=== PATIENT | male | born 1930 | race Caucasian/White ===

== ENCOUNTER 2017-12-03 20:32 | Inpatient (IN) | payer MEDICARE ==
[2017-12-03] MEDS ORDERED: solu-MEDROL 125 MG IV ONE (22:21)
[2017-12-03] MEDS ORDERED: PROVENTIL 2.5 MG/3 ML NEB IH ONE (22:21)
[2017-12-03] MEDS ORDERED: Levofloxacin 500MG/100ML D5W 500 MG/100 ML BAG IV STA ×2 (22:24→23:47)
--- NOTE | 2017-12-03 22:26 | ERPHSYRPT ---
- History of Present Illness Time Seen by Provider: 12/03/17 22:00 Source: patient Exam Limitations: clinical condition Patient Subjective Stated Complaint: SOB Triage Nursing Assessment: Pt presents to the ED with complaints of SOB x2 weeks , worse x2 days. Pt states onset 2 weeks ago with diagnosis of bronchitis, recieved IM injections and D/C. Pt states worse yesterday but improvement with duoneb treatments. Pt states worse SOB with movement, denies pain at this time. Physician History: PATIENT WITH A HISTORY OF CORONARY ARTERY DISEASE, X 3 STENT INSERTION, COPD, COMPLAINS OF INCREASING DYSPNEA X 2 WEEKS, PRODUCTIVE X 3-4 DAYS AND EXERTION DYSPNEA, UNSURE OF FEVER. DENIES CHEST PAIN , PALPITATIONS. Timing/Duration: week(s) Activities at Onset: activity Severity of Dyspnea-Max: moderate Severity of Dyspnea-Current: moderate Possible Cause: occasional episodes Modifying Factors: Improves With: albuterol nebulizer, coughing Associated Symptoms: constant, cough Allergies/Adverse Reactions: erythromycin base Allergy (Severe, Verified 06/09/16 13:34) Tightness in Chest lisinopril Allergy (Severe, Verified 06/09/16 13:34) Swelling of Tongue and Lips losartan potassium [From Cozaar] Allergy (Severe, Verified 06/09/16 13:34) Swelling of Face Penicillins Allergy (Severe, Verified 06/09/16 13:34) Hives Home Medications: Aspirin [Aspirin EC] 81 mg PO DAILY 05/25/15 [History] Carvedilol 3.125 mg [Coreg 3.125 MG] 3.125 mg PO BID 05/25/15 [History] Clopidogrel Bisulfate 75 mg [PLAVIX 75 MG Tablet] 75 mg PO DAILY 05/25/15 [History] Isosorbide Mononitrate 30 mg [Imdur 30 MG] 30 mg PO DAILY 05/25/15 [History ] Potassium Chloride 10 Meq Tab* [Klor Con 10 MEQ] 20 meq PO BID 05/25/15 [ History] Pravastatin Sodium [Pravachol] 40 mg PO HS 05/25/15 [History] Polyethylene Glycol 3350 17 gm [Miralax Powder 17GM PACKET] 17 gm PO DAILY [History] Albuterol 2.5 mg/3 ml Neb [Proventil 2.5 mg/3 ml Neb] 2.5 mg IH Q4H PRN [History] Antiox.mv No.10/Omeg3s/Lut/Johnny [I-Caps with Lutein-[place] 3 Sfg] 1 each PO BID [History] Carboxymethylcellulose Sodium [Thera Tears] 1 ml OP QID 05/15/16 [History] Indomethacin 25 mg [Indocin 25 MG] 50 mg PO DAILY 05/15/16 [History] Meclizine HCl 25 mg [Antivert 25 mg] 25 mg PO TID 12/04/17 [History] Mometasone/Formoterol [Dulera 200 Mcg/5 Mcg Inhaler] 2 puff IH BID 12/04/17 [ History] Hx Tetanus, Diphtheria Vaccination/Date Given: Yes Hx Influenza Vaccination/Date Given: Yes Hx Pneumococcal Vaccination/Date Given: Yes Immunizations Up to Date: Yes - Review of Systems Constitutional: No Fever, No Chills Eyes: No Symptoms Ears, Nose, & Throat: No Symptoms Respiratory: Cough, Dyspnea Cardiac: No Chest Pain, No Edema, No Syncope Abdominal/Gastrointestinal: Constipation, No Abdominal Pain, No Nausea, No Vomiting, No Diarrhea Genitourinary Symptoms: No Symptoms, No Dysuria Musculoskeletal: No Symptoms, No Back Pain, No Neck Pain Skin: No Rash Neurological: No Dizziness, No Focal Weakness, No Sensory Changes Psychological: No Symptoms Endocrine: No Symptoms All Other Systems: Reviewed and Negative - Past Medical History Pertinent Past Medical History: Yes Neurological History: No Pertinent History ENT History: Cataracts Cardiac History: Congestive Heart Failure, High Cholesterol Respiratory History: Asthma, CHF, COPD, Emphysema Endocrine Medical History: No Pertinent History Musculoskeletal History: Arthritis, Osteoarthritis GI Medical History: Hemorrhoids, Hernia History: No Pertinent History Psycho-Social History: No Pertinent History Male Reproductive Disorders: No Pertinent History Other Medical History: gout - Past Surgical History Past Surgical History: Yes Neuro Surgical History: No Pertinent History Cardiac: Angioplasty, CABG, Cardiac Stent Respiratory: No Pertinent History Gastrointestinal: Hemorrhoidectomy, Hernia Repair Genitourinary: No Pertinent History Musculoskeletal: No Pertinent History Male Surgical History: No Pertinent History - Social History Smoking Status: Former smoker How long have you smoked: 25 Exposure to second hand smoke: No Alcohol Use: None Drug Use: none Patient Lives Alone: No Significant Family History: heart disease, hypertension - Nursing Vital Signs Nursing Vital Signs: Initial Vital Signs Temperature 98.8 F 12/03/17 21:51 Pulse Rate 83 12/03/17 21:51 Respiratory Rate 15 12/03/17 21:51 Blood Pressure 156/71 12/03/17 21:51 O2 Sat by Pulse Oximetry 95 12/03/17 21:51 Pain Scale Pain Intensity 0 - Physical Exam General Appearance: mild distress Eye Exam: PERRL/EOMI Neck Exam: normal inspection, supple Respiratory Exam: diminished breath sounds, wheezing Cardiovascular/Chest Exam: normal heart sounds, regular rate/rhythm Abdominal/Gastrointestinal Exam: soft, No tenderness, No distention, No mass Extremity Exam: non-tender, normal range of motion, normal inspection, no calf tenderness, no pedal edema Peripheral Pulses Exam: carotid (R): 2+, carotid (L): 2+, femoral (R): 2+, femoral (L): 2+, dorsalis-pedis (R): 2+, dorsalis-pedis (L): 2+ Neurologic Exam: alert, oriented x 3, cooperative, underwriting analyst II-XII nml as tested, sensation nml, No motor deficits Skin Exam: normal color, warm, No dry SpO2 Interpretation: normal SpO2: 95 Oxygen Delivery: Room Air - Radiology Exams Chest X-ray Interpretation: Interpreted by me (LEFT INFRAHILAR INFILTRATE, RIGHT BASILAR INFILTRATE, COPD) Ordered Tests: Active Orders 24 hr Category Date Time Status Up With Assistance ROUTINE Activity 12/04/17 01:10 Ordered Admission/Status Order ROUTINE Care 12/04/17 01:10 Ordered Insurance Operations Rep STAT Care 12/03/17 22:22 Active Code Status Order ROUTINE Care 12/04/17 01:10 Ordered EKG-ER Only STAT Care 12/03/17 22:59 Active IV Care Q6H Care 12/04/17 01:10 Ordered Oxygen-ED Only NASAL CANNULA 2 lpm Care 12/03/17 22:21 Active Ap Hose, Apply ROUTINE Care 12/04/17 01:10 Ordered Telemetry ROUTINE Care 12/04/17 01:10 Ordered Vital Signs Q4H Care 12/04/17 01:10 Ordered Weight,Daily 0600 Care 12/04/17 01:10 Ordered CHEST 1 VIEW (PORTABLE) Stat Exams 12/03/17 22:22 Taken BLOOD CULTURE Stat Lab 12/03/17 23:20 Ordered CBC W DIFF Stat Lab 12/03/17 22:30 Completed CMP Stat Lab 12/03/17 22:30 Completed MAGNESIUM Stat Lab 12/03/17 22:30 Completed NT PRO BNP Stat Lab 12/03/17 22:30 Completed TROPONIN Q3H Lab 12/03/17 22:30 Completed TROPONIN Q3H Lab 12/04/17 01:30 Ordered TROPONIN Q3H Lab 12/04/17 04:30 Ordered TROPONIN Q3H Lab 12/04/17 07:30 Ordered TROPONIN Q3H Lab 12/04/17 10:30 Ordered Oxygen NASAL CANNULA 2 lpm RT 12/04/17 01:10 Ordered Pulse Oximetry ROUTINE RT 12/04/17 01:10 Ordered Respiratory Nebulizer Q4H RT 12/04/17 01:10 Ordered Respiratory Nebulizer STAT RT 12/03/17 22:23 Completed Respiratory Nebulizer STAT RT 12/04/17 00:48 Completed Respiratory Therapy Consult ROUTINE RT 12/04/17 01:10 Ordered Transfer Order Routine Transfer 12/04/17 Ordered Medication Summary Generic Name Dose Route Start Last Admin Trade Name Freq PRN Reason Stop Dose Admin Sodium Chloride 1,000 mls @ 50 mls/hr 12/03/17 22:30 12/03/17 22:37 Sodium Chloride 0.9% 1000 Ml IV 01/02/18 22:29 50 mls/hr .Q20H LORENZO Administration Discontinued Medications Generic Name Dose Route Start Last Admin Trade Name Freq PRN Reason Stop Dose Admin Albuterol Sulfate 10 mg 12/03/17 22:21 12/03/17 22:31 Proventil 2.5 Mg/3 Ml Neb IH 12/03/17 22:22 10 mg STAT ONE Administration Albuterol Sulfate Confirm 12/03/17 22:28 Proventil Solution 2.5 Mg/0.5 Ml Administered 12/03/17 22:29 Dose 10 mg IH .STK-MED ONE Albuterol/Ipratropium 3 ml 12/04/17 00:48 12/04/17 00:55 Duoneb 0.5-3 Mg/3 Ml Neb IH 12/04/17 00:49 3 ml STAT ONE Administration Albuterol/Ipratropium Confirm 12/04/17 00:53 Duoneb 0.5-3 Mg/3 Ml Neb Administered 12/04/17 00:54 Dose 3 ml IH .STK-MED ONE Levofloxacin/Dextrose 500 mg in 100 mls @ 100 mls/hr 12/03/17 22:24 12/03/17 23:32 Levofloxacin 500mg/100ml D5w IV 12/03/17 23:23 100 mls/hr STAT STA Administration Levofloxacin/Dextrose Confirm 12/03/17 22:35 Levofloxacin 500mg/100ml D5w Administered 12/03/17 22:36 Dose 500 mg in 100 mls @ ud IV .STK-MED ONE Levofloxacin/Dextrose 500 mg in 100 mls @ 100 mls/hr 12/03/17 23:47 12/03/17 23:51 Levofloxacin 500mg/100ml D5w IV 12/04/17 00:46 100 mls/hr STAT STA Administration Methylprednisolone Sodium Succinate 125 mg 12/03/17 22:21 12/03/17 22:37 Solu-Medrol 125 Mg IV 12/03/17 22:22 125 mg STAT ONE Administration Methylprednisolone Sodium Succinate Confirm 12/03/17 22:35 Solu-Medrol 125 Mg Administered 12/03/17 22:36 Dose 125 mg .ROUTE .STK-MED ONE Sodium Chloride Confirm 12/03/17 22:28 Sodium Chloride 3 Ml Ud Nebules Administered 12/03/17 22:29 Dose 6 ml IH .STK-MED ONE Lab/Rad Data: Laboratory Result Diagrams 12/03/17 22:30 12/03/17 22:30 Laboratory Results 12/03/17 12/03/17 12/03/17 Range/Units 23:20 22:30 22:30 WBC (4.0-10.5) K/mm3 RBC (4.1-5.6) M/mm3 Hgb (12.5-18.0) gm/dl Hct (42-50) % MCV (78-100) fl MCH (26-32) pg MCHC (32-36) g/dl RDW (11.5-14.0) % Plt Count (150-450) K/mm3 MPV (6-9.5) fl Gran % (36.0-66.0) % Lymphocytes % (24.0-44.0) % Monocytes % (0.0-12.0) % Eosinophils % (0.00-5.0) % Basophils % (0.0-0.4) % Basophils # (0-0.4) Sodium 140 (136-145) mEq/L Potassium 4.0 (3.5-5.1) mEq/L Chloride 102 (98-107) mEq/L Carbon Dioxide 28.3 (21-32) mEq/L Anion Gap 13.4 (5-15) MEQ/L BUN 26 H (9-20) mg/dL Creatinine 1.38 H (0.55-1.30) mg/dl Estimated GFR 52 ML/MIN Glucose 100 (70-110) MG/DL Calcium 8.8 (8.5-10.1) mg/dL Magnesium 2.1 (1.8-2.4) mg/dL Total Bilirubin 1.00 (0.2-1.0) mg/dL AST 22 (15-37) U/L ALT 31 (12-78) U/L Alkaline Phosphatase 127 H (46-116) U/L Troponin I < 0.017 (0.000-0.056) ng/ml NT-Pro-B Natriuret Pep 284 (0-450) pg/ml Serum Total Protein 7.5 (6.4-8.2) gm/dL Albumin 3.7 (3.4-5.0) g/dL Influenza Type A Ag NEGATIVE (NEGATIVE) Influenza Type B Ag NEGATIVE (NEGATIVE) RSV (PCR) NEGATIVE (Negative) 12/03/17 Range/Units 22:30 WBC 15.4 H (4.0-10.5) K/mm3 RBC 4.14 (4.1-5.6) M/mm3 Hgb 13.2 (12.5-18.0) gm/dl Hct 40.5 L (42-50) % MCV 97.8 (78-100) fl MCH 31.9 (26-32) pg MCHC 32.6 (32-36) g/dl RDW 14.9 H (11.5-14.0) % Plt Count 165 (150-450) K/mm3 MPV 9.2 (6-9.5) fl Gran % 81.4 H (36.0-66.0) % Lymphocytes % 10.0 L (24.0-44.0) % Monocytes % 7.1 (0.0-12.0) % Eosinophils % 1.4 (0.00-5.0) % Basophils % 0.1 (0.0-0.4) % Basophils # 0.02 (0-0.4) Sodium (136-145) mEq/L Potassium (3.5-5.1) mEq/L Chloride (98-107) mEq/L Carbon Dioxide (21-32) mEq/L Anion Gap (5-15) MEQ/L BUN (9-20) mg/dL Creatinine (0.55-1.30) mg/dl Estimated GFR ML/MIN Glucose (70-110) MG/DL Calcium (8.5-10.1) mg/dL Magnesium (1.8-2.4) mg/dL Total Bilirubin (0.2-1.0) mg/dL AST (15-37) U/L ALT (12-78) U/L Alkaline Phosphatase (46-116) U/L Troponin I (0.000-0.056) ng/ml NT-Pro-B Natriuret Pep (0-450) pg/ml Serum Total Protein (6.4-8.2) gm/dL Albumin (3.4-5.0) g/dL Influenza Type A Ag (NEGATIVE) Influenza Type B Ag (NEGATIVE) RSV (PCR) (Negative) - Progress Progress: improved Air Movement: fair Progress Note: 12/04/17 01:07 ADMINISTERED CONTINUOUS AEROSOL TX 10MG OVER 1 HOUR, SOLUMEDROL 125MG IV, LEVAQUIN 500MG IVPB, FOLLOWED BY A DUONEB AEROSOL Blood Culture(s) Obtained: Yes Antibiotics given: Yes Discussed with : Misael (DISCUSSED WITH DR CALVERT AT 2300 FOR ADMIT) - Departure Time of Disposition: 01:10 Departure Disposition: In-patient Admission Clinical Impression: PNEUMONIA, EXACERABATION COPD Condition: Stable Critical Care Time: No Referrals: SAM CALVERT MD [Primary Care Provider] -
[2017-12-03] MEDS ORDERED: Sodium Chloride 3 ML UD NEBULES IH ONE (22:28)
[2017-12-03] MEDS ORDERED: PROVENTIL Solution 2.5 MG/0.5 ML IH ONE (22:28)
[2017-12-03] MEDS ORDERED: Sodium Chloride 0.9% 1000 ML 1,000 ML ONE (22:35)
[2017-12-03] MEDS ORDERED: solu-MEDROL 125 MG ONE (22:35)
[2017-12-03] MEDS ORDERED: Levofloxacin 500MG/100ML D5W 500 MG/100 ML BAG IV ONE (22:35)
[2017-12-03] MEDS: Sodium Chloride 0.9% 1000 ML 1,000 ML IV SCH (22:37)
[2017-12-03 22:51] LABS: BASOPHIL % 0.1 % (0.0-0.4); Basophil (Absolute #) 0.02 (0-0.4); Eosinophil % 1.4 % (0.00-5.0); Eosinophil (Absolute #) 0.22 (0-0.5); Granulocyte Absolute (ANC) 12.52 (1.4-6.9); Granulocytes % 81.4 % (36.0-66.0); Hematocrit 40.5 % (42-50); Hemoglobin 13.2 gm/dl (12.5-18.0); Lymphocyte (Absolute #) 1.54 (1.0-4.6); Mean Cell Volume 97.8 fl (78-100); Mean Corpuscular Hemoglobin 31.9 pg (26-32); Mean Corpuscular Hgb Concent. 32.6 g/dl (32-36); Mean Platelet Volume 9.2 fl (6-9.5); Monocytes % 7.1 % (0.0-12.0); Platelet Count 165 K/mm3 (150-450); Red Blood Count 4.14 M/mm3 (4.1-5.6); Red Cell Distribution Width 14.9 % (11.5-14.0); White Blood Count 15.4 K/mm3 (4.0-10.5)
[2017-12-03 23:21] LABS: ALBUMIN 3.7 g/dL (3.4-5.0); ANION GAP 13.4 MEQ/L (5-15); Calcium 8.8 mg/dL (8.5-10.1); Carbon Dioxide 28.3 mEq/L (21-32); Creatinine 1 1.38 mg/dl (0.55-1.30); Total Protein 7.5 gm/dL (6.4-8.2)
[2017-12-04 00:28] LABS: INFLUENZA A NEGATIVE (NEGATIVE); INFLUENZA B NEGATIVE (NEGATIVE); RESPIRATORY SYNCTIAL VIRUS NEGATIVE (Negative)
[2017-12-04] MEDS ORDERED: DUONEB 0.5-3 MG/3 ml Neb IH ONE ×2 (00:48→00:53)
[2017-12-04] MEDS ORDERED: TYLENOL 325 MG PO PRN (01:14)
[2017-12-04] MEDS ORDERED: Xopenex 1.25 MG/0.5 ML UD NEBULE IH PRN (01:17)
[2017-12-04] MEDS: DUONEB 0.5-3 MG/3 ml Neb IH SCH ×6 (05:08→23:25)
[2017-12-04] MEDS: solu-MEDROL 125 MG IV SCH ×4 (05:56→23:48)
--- NOTE | 2017-12-04 09:08 | XRAY ---
Indication: Cough. Comparison: June 09, 2016. Portable chest again demonstrates COPD, calcified granulomas, right base infiltrate/atelectasis, and CABG surgery. Heart is not enlarged. Bony thorax intact again with osteopenia and degenerative changes. No new/acute findings.
[2017-12-04] MEDS ORDERED: Lasix 40 MG PO SCH (10:00)
[2017-12-04] MEDS ORDERED: ECOTRIN 81 MG PO SCH (10:00)
[2017-12-04] MEDS: LASIX 20 MG PO SCH (10:06)
[2017-12-04] MEDS: PLAVIX 75 MG Tablet PO SCH (10:06)
[2017-12-04] MEDS: Coreg 3.125 MG PO SCH ×2 (10:06→22:07)
[2017-12-04] MEDS: Imdur 30 MG PO SCH (10:08)
[2017-12-04] MEDS: SYNTHROID 25 MCG PO SCH (10:08)
[2017-12-04] MEDS ORDERED: Nitrostat 0.4 MG Tablet SL PRN (10:50)
[2017-12-04] MEDS ORDERED: Imdur 30 MG PO SCH (11:00)
[2017-12-04] MEDS: Miralax Powder 17GM PACKET PO SCH (12:07)
[2017-12-04] MEDS: Ecotrin 325 MG PO SCH (12:07)
[2017-12-04] MEDS: ZYLOPRIM 300 MG PO SCH (12:07)
[2017-12-04] MEDS ORDERED: CARBOXYMETHYLCELLULOSE SODIUM OP SCH (13:00)
[2017-12-04] MEDS: Indocin 25 MG PO SCH (13:32)
[2017-12-04] MEDS: Artificial Tears 15 ML OP SCH ×3 (13:33→22:08)
--- NOTE | 2017-12-04 13:44 | PCM.HP ---
History of Present Illness - Chief Complaint Chief Complaint: Exacerbation COPD Pnemonia History of Present Illness: is a 86 year old male. - Review of Systems Constitutional: No Fever, No Chills Eyes: No Symptoms Ears, Nose, & Throat: No Symptoms Respiratory: Cough, Orthopnea, Short Of Breath Cardiac: No Chest Pain, No Edema, No Syncope Abdominal/Gastrointestinal: No Abdominal Pain, No Nausea, No Vomiting, No Diarrhea Genitourinary Symptoms: No Dysuria Musculoskeletal: No Back Pain, No Neck Pain Skin: No Rash Neurological: No Dizziness, No Focal Weakness, No Sensory Changes Psychological: No Symptoms Endocrine: No Symptoms Hematologic/Lymphatic: No Symptoms Immunological/Allergic: No Symptoms Medications & Allergies Home Medications: Home Medication List Carvedilol 3.125 mg [Coreg 3.125 MG] 3.125 mg PO BID 05/25/15 [History Confirmed 12/04/17] Clopidogrel Bisulfate 75 mg [PLAVIX 75 MG Tablet] 75 mg PO DAILY 05/25/15 [History Confirmed 12/04/17] Isosorbide Mononitrate 30 mg [Imdur 30 MG] 30 mg PO DAILY 05/25/15 [ History Confirmed 12/04/17] Potassium Chloride 10 Meq Tab* [Klor Con 10 MEQ] 20 meq PO BID 05/25/15 [ History Confirmed 12/04/17] Pravastatin Sodium [Pravachol] 40 mg PO HS 05/25/15 [History Confirmed 12/04/17] Polyethylene Glycol 3350 17 gm [Miralax Powder 17GM PACKET] 17 gm PO DAILY [History Confirmed 12/04/17] Allopurinol 300 mg [Zyloprim 300 mg] 300 mg PO DAILY #0 tablet 01/28/16 [ Rx Confirmed 12/04/17] Albuterol 2.5 mg/3 ml Neb [Proventil 2.5 mg/3 ml Neb] 2.5 mg IH Q4H PRN [History Confirmed 12/04/17] Antiox.mv No.10/Omeg3s/Lut/Johnny [I-Caps with Lutein-[place] 3 Sfg] 1 each PO BID [History Confirmed 12/04/17] Carboxymethylcellulose Sodium [Thera Tears] 1 ml OP QID 05/15/16 [History Confirmed 12/04/17] Indomethacin 25 mg [Indocin 25 MG] 25 mg PO DAILY 05/15/16 [History Confirmed 12/04/17] Furosemide [Lasix] 60 mg PO DAILY #0 05/17/16 [Rx Confirmed 12/04/17] Levothyroxine Sodium 25 Mcg [Synthroid 25 Mcg] 25 mcg PO DAILY #0 tablet 05/17/16 [Rx Confirmed 12/04/17] Albuterol 2.5 mg/3 ml Neb [Proventil 2.5 mg/3 ml Neb] 2.5 mg IH Q6H [History Confirmed 12/04/17] Aspirin 325 mg PO DAILY 12/04/17 [History Confirmed 12/04/17] Meclizine HCl 25 mg [Antivert 25 mg] 25 mg PO TID 12/04/17 [History Confirmed 12/04/17] Mometasone/Formoterol [Dulera 200 Mcg/5 Mcg Inhaler] 2 puff IH BID 12/04/17 [ History Confirmed 12/04/17] Nitroglycerin 0.4 mg Tablet [Nitrostat 0.4 MG Tablet] 0.4 mg SL Q5MIN PRN MR X 3 PRN 12/04/17 [History Confirmed 12/04/17] Allergies/Adverse Reactions: Allergies Allergy/AdvReac Type Severity Reaction Status Date / Time erythromycin base Allergy Severe Tightness Verified 06/09/16 13:34 in Chest lisinopril Allergy Severe Swelling Verified 06/09/16 13:34 of Tongue and Lips losartan potassium Allergy Severe Swelling Verified 06/09/16 13:34 [From [place]] of Face Penicillins Allergy Severe Hives Verified 06/09/16 13:34 - Past Medical History Past Medical History: Yes Neurological History: No Pertinent History ENT History: Cataracts Cardiac History: Congestive Heart Failure Respiratory History: Asthma, CHF, COPD, Pneumonia, Sleep Apnea Endocrine Medical History: No Pertinent History Musculoskelatal History: Arthritis, Osteoarthritis GI Medical History: Hernia History: No Pertinent History Pyscho-Social History: No Pertinent History Male Reproductive Disorders: No Pertinent History Comment: Gout - Past Surgical History Past Surgical History: Yes Neuro Surgical History: No Pertinent History Cardiac History: Angioplasty, CABG, Cardiac Stent Respiratory Surgery: No Pertinent History GI Surgical History: Hemorrhoidectomy, Hernia Repair Genitourinary Surgical Hx: No Pertinent History Musculskeletal Surgical Hx: No Pertinent History Male Surgical History: No Pertinent History - Social History Smoking Status: Former smoker How long have you smoked: 35 Exposure to second hand smoke: No Alcohol: None Drug Use: none Significant Family History: heart disease, hypertension - Physical Exam Vital Signs: Vital Signs - 24 hr Temp Pulse Resp BP Pulse Ox 12/04/17 12:55 97.8 F 73 20 122/50 93 L 12/04/17 10:32 80 20 96 12/04/17 08:00 96 12/04/17 07:43 98.1 F 70 20 120/65 96 12/04/17 05:10 74 22 95 12/04/17 03:23 98.3 F 82 24 128/63 12/04/17 03:05 79 16 119/56 93 L 12/04/17 01:51 90 16 119/69 96 12/04/17 01:18 95 12/04/17 00:59 77 18 97 12/04/17 00:07 22 96 12/04/17 00:03 83 22 125/54 96 12/03/17 23:06 84 27 H 98 12/03/17 23:03 75 12/03/17 21:51 98.8 F 83 15 156/71 95 Oxygen-Last 24 hours O2 Percentage 2 Liters = 28% O2 Percentage 2 Liters = 28% O2 Percentage 2 Liters = 28% O2 Percentage 2 Liters = 28% O2 Percentage 2 Liters = 28% General Appearance: no apparent distress, alert Neurologic Exam: alert, oriented x 3, cooperative, normal mood/affect, nml cerebellar function, nml station & gait, sensation nml, No motor deficits Eye Exam: PERRL/EOMI, eyes nml inspection Ears, Nose, Throat Exam: normal ENT inspection, TMs normal, pharynx normal, moist mucous membranes Neck Exam: normal inspection, non-tender, supple, full range of motion Respiratory Exam: normal breath sounds, lungs clear, No respiratory distress Cardiovascular Exam: regular rate/rhythm, normal heart sounds, normal peripheral pulses Gastrointestinal/Abdomen Exam: soft, normal bowel sounds, No tenderness, No mass Back Exam: normal inspection, normal range of motion, No CVA tenderness, No vertebral tenderness Extremity Exam: normal inspection, normal range of motion, pelvis stable Skin Exam: normal color, warm, dry, No rash Lymphatic Exam: No adenopathy Results - Labs Lab/Micro Results: Lab Results-Last 24 Hours 12/04/17 12/04/17 12/04/17 Range/Units 04:35 07:25 10:20 Troponin I < 0.017 < 0.017 < 0.017 (0.000-0.056) ng/ml Assessment/Plan (1) COPD exacerbation Current Visit: Yes Status: Acute Code(s): J44.1 - CHRONIC OBSTRUCTIVE PULMONARY DISEASE W (ACUTE) EXACERBATION (2) Cough Current Visit: Yes Status: Acute Code(s): R05 - COUGH (3) Pneumonia Current Visit: Yes Status: Acute Code(s): J18.9 - PNEUMONIA, UNSPECIFIED ORGANISM
[2017-12-04] MEDS: Advair Hfa 230/21 Mcg COMMON CANISTER IH SCH ×2 (15:10→19:20)
[2017-12-04] MEDS: Sodium Chloride 0.9% 1000 ML 1,000 ML IV SCH (17:31)
[2017-12-04] MEDS ORDERED: [UNRECOGNIZED DRUG - REMARK] PO SCH (22:00)
[2017-12-04] MEDS ORDERED: NON-FORMULARY ITEM (Mometasone/Formoterol [Dulera 200 Mcg/5 Mcg Inhaler] 2 PUFF) IH SCH (22:00)
[2017-12-04] MEDS ORDERED: NON-FORMULARY ITEM (Pravastatin Sodium [Pravachol] 40 MG) PO SCH (22:00)
[2017-12-04] MEDS: ZOCOR 20MG PO SCH (22:07)
[2017-12-04] MEDS: Levofloxacin 500MG/100ML D5W 500 MG/100 ML BAG IV SCH (22:07)
[2017-12-04] MEDS: Klor Con 10 MEQ PO SCH (22:08)
[2017-12-04] MEDS: Ocuvite Tablet PO SCH (22:08)
[2017-12-05] MEDS: DUONEB 0.5-3 MG/3 ml Neb IH SCH ×6 (03:16→23:15)
[2017-12-05] MEDS: solu-MEDROL 125 MG IV SCH ×3 (06:21→23:20)
[2017-12-05] MEDS: ZYLOPRIM 300 MG PO SCH (09:54)
[2017-12-05] MEDS: Imdur 30 MG PO SCH (09:54)
[2017-12-05] MEDS: Ocuvite Tablet PO SCH ×2 (09:54→23:20)
[2017-12-05] MEDS: SYNTHROID 25 MCG PO SCH (09:54)
[2017-12-05] MEDS: Klor Con 10 MEQ PO SCH ×2 (09:55→23:19)
[2017-12-05] MEDS: PLAVIX 75 MG Tablet PO SCH (09:55)
[2017-12-05] MEDS: Artificial Tears 15 ML OP SCH ×4 (09:55→22:00)
[2017-12-05] MEDS: LASIX 20 MG PO SCH (09:55)
[2017-12-05] MEDS: Ecotrin 325 MG PO SCH (09:55)
[2017-12-05] MEDS: Coreg 3.125 MG PO SCH ×2 (09:55→23:19)
[2017-12-05] MEDS: Indocin 25 MG PO SCH (09:56)
[2017-12-05] MEDS: Miralax Powder 17GM PACKET PO SCH (09:56)
[2017-12-05] MEDS: Advair Hfa 230/21 Mcg COMMON CANISTER IH SCH ×2 (11:20→19:54)
[2017-12-05] MEDS: Sodium Chloride 0.9% 1000 ML 1,000 ML IV SCH (15:24)
--- NOTE | 2017-12-05 21:54 | PCM.NOTE ---
Date and Time: 12/05/172152 Subjective Assessment: doing better - Review of Systems Constitutional: No Fever, No Chills Eyes: No Symptoms Ears, Nose, & Throat: No Symptoms Respiratory: Orthopnea, No Cough, No Short Of Breath Cardiac: No Chest Pain, No Edema, No Syncope Abdominal/Gastrointestinal: No Abdominal Pain, No Nausea, No Vomiting, No Diarrhea Genitourinary Symptoms: No Dysuria Musculoskeletal: No Back Pain, No Neck Pain Skin: No Rash Neurological: No Dizziness, No Focal Weakness, No Sensory Changes Psychological: No Symptoms Endocrine: No Symptoms Hematologic/Lymphatic: No Symptoms Immunological/Allergic: No Symptoms Objective Exam General Appearance: no apparent distress, alert Neurologic Exam: alert, oriented x 3, cooperative, normal mood/affect, nml cerebellar function, sensation nml, No motor deficits Skin Exam: normal color, warm, dry Eye Exam: PERRL, EOMI, eyes nml inspection Ears, Nose, Throat Exam: normal ENT inspection, pharynx normal, moist mucous membranes Neck Exam: normal inspection, non-tender, supple, full range of motion Respiratory Exam: normal breath sounds, lungs clear, No respiratory distress Cardiovascular Exam: regular rate/rhythm, normal heart sounds Gastrointestinal/Abdomen Exam: soft, No tenderness, No mass Extremity Exam: normal inspection, normal range of motion Back Exam: normal inspection, normal range of motion, No CVA tenderness, No vertebral tenderness Male Genitalia Exam: deferred Rectal Exam: deferred OBJECTIVE DATA Vital Signs: Vital Signs - 24 hr Temp Pulse Resp BP Pulse Ox 12/05/17 20:07 98.0 F 78 26 H 143/76 93 L 12/05/17 19:54 70 16 96 12/05/17 17:00 98.4 F 65 20 122/75 96 12/05/17 16:00 20 12/05/17 14:51 73 18 95 12/05/17 12:11 98.7 F 68 20 130/64 90 L 12/05/17 11:26 94 L 12/05/17 11:21 74 22 94 L 12/05/17 07:08 98.8 F 66 20 129/60 90 L 12/05/17 06:59 71 28 H 89 L 12/05/17 05:00 98.2 F 69 24 129/62 90 L 12/05/17 04:00 20 03/06/18 03:00 66 24 91 L 12/05/17 01:00 96 12/05/17 00:19 97.9 F 71 16 132/64 92 L 12/05/17 00:00 16 12/04/17 23:43 70 20 91 L Oxygen-Last 24 hours O2 Percentage 3 Liters = 32% O2 Percentage 2 Liters = 28% O2 Percentage 2 Liters = 28% Pain Assessment - Last Documented Pain Intensity 0 Pain Scale Used 0-10 Pain Scale Intake and Output: Intake & Output 12/03/17 12/04/17 12/05/17 12/06/17 11:59 11:59 11:59 11:59 Intake Total 100 1944 240 Output Total 900 400 Balance 100 1044 -160 Weight 96.1 kg Assessment/Plan (1) COPD exacerbation Current Visit: Yes Status: Acute Assessment & Plan: improving Code(s): J44.1 - CHRONIC OBSTRUCTIVE PULMONARY DISEASE W (ACUTE) EXACERBATION (2) Cough Current Visit: Yes Status: Resolved Code(s): R05 - COUGH (3) Pneumonia Current Visit: Yes Status: Acute Qualifiers: Pneumonia type: due to unspecified organism Laterality: unspecified laterality Lung location: unspecified part of lung Qualified Code(s): J18.9 - Pneumonia, unspecified organism Code(s): J18.9 - PNEUMONIA, UNSPECIFIED ORGANISM
[2017-12-05] MEDS: Levofloxacin 500MG/100ML D5W 500 MG/100 ML BAG IV SCH (23:20)
[2017-12-05] MEDS: ZOCOR 20MG PO SCH (23:20)
[2017-12-06] MEDS: DUONEB 0.5-3 MG/3 ml Neb IH SCH ×2 (03:03→07:07)
[2017-12-06] MEDS: solu-MEDROL 125 MG IV SCH (05:16)
[2017-12-06] MEDS: Advair Hfa 230/21 Mcg COMMON CANISTER IH SCH (07:11)
[2017-12-06 07:12] VITALS: BP 150/72
[2017-12-06 07:16] VITALS: PULSE 72; O2SAT 93
[2017-12-06] MEDS: SYNTHROID 25 MCG PO SCH (08:27)
[2017-12-06] MEDS: Klor Con 10 MEQ PO SCH (08:27)
[2017-12-06] MEDS: ZYLOPRIM 300 MG PO SCH (08:27)
[2017-12-06] MEDS: Imdur 30 MG PO SCH (08:28)
[2017-12-06] MEDS: Coreg 3.125 MG PO SCH (08:28)
[2017-12-06] MEDS: Ocuvite Tablet PO SCH (08:28)
[2017-12-06] MEDS: LASIX 20 MG PO SCH (08:28)
[2017-12-06] MEDS: Ecotrin 325 MG PO SCH (08:29)
[2017-12-06] MEDS: PLAVIX 75 MG Tablet PO SCH (08:29)
[2017-12-06] MEDS: Indocin 25 MG PO SCH (08:29)
[2017-12-06] MEDS: Miralax Powder 17GM PACKET PO SCH (08:30)
[2017-12-06] MEDS: Artificial Tears 15 ML OP SCH (08:32)
--- NOTE | 2017-12-06 08:52 | PCM.DS ---
Discharge Summary Date of Admission: 12/04/17 03:23 Admitting Physician: SAM CALVERT Primary Care Provider: SAM CALVERT Allergies Allergies erythromycin base Allergy (Severe, Verified 06/09/16 13:34) Tightness in Chest lisinopril Allergy (Severe, Verified 06/09/16 13:34) Swelling of Tongue and Lips losartan potassium [From Cozaar] Allergy (Severe, Verified 06/09/16 13:34) Swelling of Face Penicillins Allergy (Severe, Verified 06/09/16 13:34) [facility] Summary - Hospital Course Hospital Course: Chief Complaint Diagnosis Exacerbation COPD Pnemonia Allergies Allergy/AdvReac Type Severity Reaction Status Date / Time erythromycin base Allergy Severe Tightness Verified 06/09/16 13:34 in Chest lisinopril Allergy Severe Swelling Verified 06/09/16 13:34 of Tongue and Lips losartan potassium Allergy Severe Swelling Verified 06/09/16 13:34 [From Cozaar] of Face Penicillins Allergy Severe Hives Verified 06/09/16 13:34 Vital Signs (Last 24 hours) Temp Pulse Resp BP Pulse Ox 12/06/17 07:13 72 22 93 L 12/06/17 07:10 97.7 F 96 H 20 150/72 92 L 12/06/17 04:00 97.9 F 65 20 135/61 94 L 12/06/17 03:03 60 16 12/06/17 00:00 97.0 F 69 20 135/69 94 L 12/05/17 23:16 64 16 12/05/17 20:07 98.0 F 78 26 H 143/76 93 L 12/05/17 19:54 70 16 96 12/05/17 17:00 98.4 F 65 20 122/75 96 12/05/17 16:00 20 12/05/17 14:51 73 18 95 12/05/17 12:11 98.7 F 68 20 130/64 90 L 12/05/17 11:26 94 L 12/05/17 11:21 74 22 94 L Home Medications Medication Instructions Recorded Confirmed Last Taken Type Albuterol 2.5 mg/3 ml Neb 2.5 mg IH Q6H 12/04/17 12/04/17 Unknown History [Proventil 2.5 mg/3 ml Neb] Aspirin 325 mg PO DAILY 12/04/17 12/04/17 Unknown History Meclizine HCl 25 mg [Antivert 25 mg PO TID 12/04/17 12/04/17 Unknown History 25 mg] Mometasone/Formoterol [Dulera 200 2 puff IH BID 12/04/17 12/04/17 Unknown History Mcg/5 Mcg Inhaler] Nitroglycerin 0.4 mg Tablet 0.4 mg SL Q5MIN PRN MR X 3 PRN 12/04/17 12/04/17 Unknown History [Nitrostat 0.4 MG Tablet] Current Medications Generic Name Dose Route Start Last Admin Trade Name Freq PRN Reason Stop Dose Admin Acetaminophen 650 mg 12/04/17 01:14 Tylenol 325 Mg PO 01/03/18 01:13 Q4H PRN PRN PAIN AND/OR FEVER Albuterol/Ipratropium 3 ml 12/04/17 03:00 12/06/17 07:07 Duoneb 0.5-3 Mg/3 Ml Neb IH 01/03/18 02:59 3 ml Q4HRT LORENZO Administration Allopurinol 300 mg 12/04/17 11:00 12/06/17 08:27 Zyloprim 300 Mg PO 01/03/18 10:59 300 mg DAILY LORENZO Administration Artificial Tears 0 ml 12/04/17 13:00 12/06/17 08:32 Artificial Tears 15 Ml OP 01/03/18 12:59 15 ml QID LORENZO Administration Aspirin 325 mg 12/04/17 11:00 12/06/17 08:29 Ecotrin 325 Mg PO 01/03/18 10:59 325 mg DAILY LORENZO Administration Carvedilol 3.125 mg 12/04/17 10:00 12/06/17 08:28 Coreg 3.125 Mg PO 01/03/18 09:59 3.125 mg BID LORENZO Administration Clopidogrel Bisulfate 75 mg 12/04/17 10:00 12/06/17 08:29 Plavix 75 Mg Tablet PO 01/03/18 09:59 75 mg DAILY LORENZO Administration Furosemide 60 mg 12/04/17 10:00 12/06/17 08:28 Lasix 20 Mg PO 01/03/18 09:59 60 mg QAM LORENZO Administration Sodium Chloride 1,000 mls @ 50 mls/hr 12/03/17 22:30 12/05/17 15:24 Sodium Chloride 0.9% 1000 Ml IV 01/02/18 22:29 50 mls/hr .Q20H LORENZO Administration Levofloxacin/Dextrose 500 mg in 100 mls @ 100 mls/hr 12/04/17 22:00 12/05/17 23:20 Levofloxacin 500mg/100ml D5w IV 01/03/18 21:59 100 mls/hr Q24H22 LORENZO Administration Indomethacin 25 mg 12/04/17 11:00 12/06/17 08:29 Indocin 25 Mg PO 01/03/18 10:59 25 mg DAILY LORENZO Administration Isosorbide Mononitrate 30 mg 12/04/17 10:00 12/06/17 08:28 Imdur 30 Mg PO 01/03/18 09:59 30 mg QAM LORENZO Administration Levalbuterol HCl 1.25 mg 12/04/17 01:17 Xopenex 1.25 Mg/0.5 Ml Ud Nebule IH 01/03/18 01:16 Q2H PRN PRN DYSPNEA Levothyroxine Sodium 25 mcg 12/04/17 10:00 12/06/17 08:27 Synthroid 25 Mcg PO 01/03/18 09:59 25 mcg QAM LORENZO Administration Methylprednisolone Sodium Succinate 80 mg 12/05/17 14:00 12/06/17 05:16 Solu-Medrol 125 Mg IV 01/04/18 13:59 80 mg Q8HT LORENZO Administration Multivitamins/Minerals 1 tab 12/04/17 22:00 12/06/17 08:28 Ocuvite Tablet PO 01/03/18 21:59 1 tab BID LORENZO Administration Nitroglycerin 0.4 mg 12/04/17 10:50 Nitrostat 0.4 Mg Tablet SL 01/03/18 10:49 Q5MIN PRN MR X 3 PRN CHEST PAIN Polyethylene Glycol 17 gm 12/04/17 11:00 12/06/17 08:30 Miralax Powder 17gm Packet PO 01/03/18 10:59 17 gm DAILY LORENZO Administration Potassium Chloride 20 meq 12/04/17 22:00 03/07/18 08:27 Klor Con 10 Meq PO 01/03/18 21:59 20 meq BID LORENZO Administration Fluticasone/Salmeterol 2 puff 12/04/17 11:15 12/06/17 07:11 Advair Hfa 230/21 Mcg Common Canister* IH 01/03/18 11:14 2 puff BIDRT LORENZO Administration Simvastatin 40 mg 12/04/17 22:00 12/05/17 23:20 Zocor 20mg PO 01/03/18 21:59 40 mg HS LORENZO Administration Discontinued Medications Generic Name Dose Route Start Last Admin Trade Name Freq PRN Reason Stop Dose Admin Albuterol Sulfate 10 mg 12/03/17 22:21 12/03/17 22:31 Proventil 2.5 Mg/3 Ml Neb IH 12/03/17 22:22 10 mg STAT ONE Administration Albuterol Sulfate Confirm 12/03/17 22:28 Proventil Solution 2.5 Mg/0.5 Ml Administered 12/03/17 22:29 Dose 10 mg IH .STK-MED ONE Albuterol/Ipratropium 3 ml 12/04/17 00:48 12/04/17 00:55 Duoneb 0.5-3 Mg/3 Ml Neb IH 12/04/17 00:49 3 ml STAT ONE Administration Albuterol/Ipratropium Confirm 12/04/17 00:53 Duoneb 0.5-3 Mg/3 Ml Neb Administered 12/04/17 00:54 Dose 3 ml IH .STK-MED ONE Aspirin 81 mg 12/04/17 10:00 12/04/17 12:10 Ecotrin 81 Mg PO 01/03/18 09:59 Not Given DAILY LORENZO Levofloxacin/Dextrose 500 mg in 100 mls @ 100 mls/hr 12/03/17 22:24 12/03/17 23:32 Levofloxacin 500mg/100ml D5w IV 12/03/17 23:23 100 mls/hr STAT STA Administration Levofloxacin/Dextrose Confirm 12/03/17 22:35 Levofloxacin 500mg/100ml D5w Administered 12/03/17 22:36 Dose 500 mg in 100 mls @ ud IV .STK-MED ONE Levofloxacin/Dextrose 500 mg in 100 mls @ 100 mls/hr 12/03/17 23:47 12/03/17 23:51 Levofloxacin 500mg/100ml D5w IV 12/04/17 00:46 100 mls/hr STAT STA Administration Sodium Chloride Confirm 12/03/17 22:35 Sodium Chloride 0.9% 1000 Ml Administered 12/03/17 22:36 Dose 1,000 mls @ ud .ROUTE .STK-MED ONE Methylprednisolone Sodium Succinate 125 mg 12/03/17 22:21 12/03/17 22:37 Solu-Medrol 125 Mg IV 12/03/17 22:22 125 mg STAT ONE Administration Methylprednisolone Sodium Succinate Confirm 12/03/17 22:35 Solu-Medrol 125 Mg Administered 12/03/17 22:36 Dose 125 mg .ROUTE .STK-MED ONE Methylprednisolone Sodium Succinate 80 mg 12/04/17 06:00 12/05/17 06:21 Solu-Medrol 125 Mg IV 01/03/18 05:59 80 mg Q6HT LORENZO Administration Sodium Chloride Confirm 12/03/17 22:28 Sodium Chloride 3 Ml Ud Nebules Administered 12/03/17 22:29 Dose 6 ml IH .STK-MED ONE Intake & Output (Last 24 hours) 12/03/17 12/04/17 12/05/17 12/06/17 11:59 11:59 11:59 11:59 Intake Total 100 1944 1755 Output Total 900 875 Balance 100 1044 880 Weight 94 kg 96.1 kg 96.2 kg Microbiology Results (Last 24 hours) 12/03/17 23:20 Blood - Pending 12/03/17 23:20 Blood Blood Culture - Preliminary NO GROWTH TO DATE 12/03/17 22:30 Blood - Pending 12/03/17 22:30 Blood Blood Culture - Preliminary NO GROWTH TO DATE Orders (Last 24 hours) Category Date Time Status Methylprednis Sod Succ 125 mg* [solu-MEDROL 125 MG] Med 12/05/17 14:00 Active 80 mg IV Q8HT - Vitals & Intake/Output Vital Signs: Vital Signs Temperature 97.7 F 12/06/17 07:10 Pulse Rate 72 12/06/17 07:13 Respiratory Rate 22 12/06/17 07:13 Blood Pressure 150/72 12/06/17 07:10 O2 Sat by Pulse Oximetry 93 L 12/06/17 07:13 Oxygen-Last Documented O2 Percentage 3 Liters = 32% Intake & Output: Intake & Output 12/03/17 12/04/17 12/05/17 12/06/17 11:59 11:59 11:59 11:59 Intake Total 100 1944 1755 Output Total 900 875 Balance 100 1044 880 Weight 96.1 kg 96.2 kg - Lab Result Diagrams: 12/03/17 22:30 12/03/17 22:30 - Procedures and Test Procedures and Tests throughout Hospitalization: Therapy Orders & Screens 12/04/17 07:00 Respiratory MDI BID Comment: Diagnosis: Exacerbation COPD Pnemonia 12/04/17 20:58 FLUTTER [Flutter Therapy] UD Comment: Diagnosis: Exacerbation COPD Pnemonia Discharge Exam General Appearance: no apparent distress, alert Neurologic Exam: alert, oriented x 3, cooperative, normal mood/affect, nml cerebellar function, sensation nml, No motor deficits Skin Exam: normal color, warm, dry Eye Exam: PERRL, EOMI, eyes nml inspection Ears, Nose, Throat Exam: normal ENT inspection, pharynx normal, moist mucous membranes Neck Exam: normal inspection, non-tender, supple, full range of motion Respiratory Exam: normal breath sounds, lungs clear, No respiratory distress Cardiovascular Exam: regular rate/rhythm, normal heart sounds Gastrointestinal/Abdomen Exam: soft, No tenderness, No mass Extremity Exam: normal inspection, normal range of motion Back Exam: normal inspection, normal range of motion, No CVA tenderness, No vertebral tenderness Male Genitalia Exam: deferred Rectal Exam: deferred Final Diagnosis/Problem List - Final Discharge Diagnosis/Problem (1) COPD exacerbation Current Visit: Yes Status: Resolved (2) Cough Current Visit: Yes Status: Resolved (3) Pneumonia Current Visit: Yes Status: Acute Assessment & Plan: continue oral antibiotics at home (4) Chronic diastolic CHF (congestive heart failure), NYHA class 3 Current Visit: Yes Status: Acute - Discharge Discharge Date: 12/06/17 Disposition: Home, Self-Care Condition: Stable Prescriptions: New Levofloxacin [Levofloxacin 500MG/100ML D5W] 500 mg PO Q24H22 #5 bag Continue Isosorbide Mononitrate 30 mg [Imdur 30 MG] 30 mg PO DAILY Clopidogrel Bisulfate 75 mg [PLAVIX 75 MG Tablet] 75 mg PO DAILY Carvedilol 3.125 mg [Coreg 3.125 MG] 3.125 mg PO BID Pravastatin Sodium [Pravachol] 40 mg PO HS Potassium Chloride 10 Meq Tab* [Klor Con 10 MEQ] 20 meq PO BID Polyethylene Glycol 3350 17 gm [Miralax Powder 17GM PACKET] 17 gm PO DAILY Allopurinol 300 mg [Zyloprim 300 mg] 300 mg PO DAILY #0 tablet Indomethacin 25 mg [Indocin 25 MG] 25 mg PO DAILY Carboxymethylcellulose Sodium [Thera Tears] 1 ml OP QID Albuterol 2.5 mg/3 ml Neb [Proventil 2.5 mg/3 ml Neb] 2.5 mg IH Q4H PRN PRN Reason: Shortness Of Breath Antiox.mv No.10/Omeg3s/Lut/Johnny [I-Caps with Lutein-[place] 3 Sfg] 1 each PO BID Levothyroxine Sodium 25 Mcg [Synthroid 25 Mcg] 25 mcg PO DAILY #0 tablet Furosemide [Lasix] 60 mg PO DAILY #0 Mometasone/Formoterol [Dulera 200 Mcg/5 Mcg Inhaler] 2 puff IH BID Meclizine HCl 25 mg [Antivert 25 mg] 25 mg PO TID Aspirin 325 mg PO DAILY Nitroglycerin 0.4 mg Tablet [Nitrostat 0.4 MG Tablet] 0.4 mg SL Q5MIN PRN MR X 3 PRN PRN Reason: Chest Pain Albuterol 2.5 mg/3 ml Neb [Proventil 2.5 mg/3 ml Neb] 2.5 mg IH Q6H Follow up with: SAM CALVERT MD [Primary Care Provider] - 1 Week
== END 2017-12-06 10:49 | disposition home or self-care (01) | DRG 190 ==
LOC: ED 20:32 → MED SURG 12-04 03:23
PROVIDERS: ADMIT General Practice; ATTEND General Practice
DX: J44.1 Chronic obstructive pulmonary disease with (acute) exacerbation (principal); J18.9 Pneumonia, unspecified organism; I50.9 Heart failure, unspecified; E78.00 Pure hypercholesterolemia, unspecified; J45.909 Unspecified asthma, uncomplicated; M19.90 Unspecified osteoarthritis, unspecified site; M10.9 Gout, unspecified; I50.32 Chronic diastolic (congestive) heart failure; Z79.899 Other long term (current) drug therapy; Z87.891 Personal history of nicotine dependence
CPT/HCPCS: 36415; 71045; 80053; 83735; 83880; 84484; 85025; 87040; 87631; 93005; 93041; 94150; 94640; 94760; 96360; 96361; 96365; 96374; 99285; J1956; J2930; A9270-GY

== ENCOUNTER 2019-03-21 21:48 | Inpatient (IN) | payer MEDICARE, OTHER ==
--- NOTE | 2019-03-21 22:33 | ERPHSYRPT ---
- History of Present Illness Time Seen by Provider: 03/21/19 22:23 Source: patient Exam Limitations: no limitations Patient Subjective Stated Complaint: Pt states he has had generalized weakness and sob on exertion x 1 week, pcp Misael ordered lab work today and K+ came back at 2.4 and told to come to ed. Pt adds 10 days ago he was started on a second diuretic by his account contact associate for fluid retention secondary to CHF Triage Nursing Assessment: [place]/warm/dry, resp easy in waiting room became sob when transferring from wheelchair to bed, a&ox4. Physician History: 88-year-old white male with history of cataracts, congestive heart failure, hyperlipidemia, asthma, COPD, emphysema, arthritis, osteoarthritis, Patient arrives with complaint that he has been short of breath for a week feeling somewhat weak he apparently saw his family doctor today patient had chemistry orders and the patient was noted to have a potassium of 2.4 on his laboratory studies. Patient is not having any chest pain Past medical history includes cataracts, congestive heart failure, hyperlipidemia, asthma, COPD, emphysema, arthritis, osteoarthritis, hemorrhoids , gout Past surgical history includes CABG, cardiac stent, hemorrhoidectomy, angioplasty, hernia repair Timing/Duration: week(s) (symptoms for about a week) Severity: moderate Modifying Factors: Improves With: other (patient recently had another diuretic added to his medication list) Associated Symptoms: shortness of breath, weakness, No nausea, No vomiting, No abdominal pain, No heartburn, No diaphoresis, No cough, No chills, No chest pain , No fever, No headaches, No loss of appetite, No malaise, No rash, No syncope, No seizure Allergies/Adverse Reactions: erythromycin base Allergy (Severe, Verified 06/09/16 13:34) Tightness in Chest lisinopril Allergy (Severe, Verified 06/09/16 13:34) Swelling of Tongue and Lips losartan potassium [From Cozaar] Allergy (Severe, Verified 06/09/16 13:34) Swelling of Face Penicillins Allergy (Severe, Verified 06/09/16 13:34) Hives Home Medications: Carvedilol 3.125 mg [Coreg 3.125 MG] 3.125 mg PO BID 05/25/15 [History] Clopidogrel Bisulfate 75 mg [PLAVIX 75 MG Tablet] 75 mg PO DAILY 05/25/15 [History] Isosorbide Mononitrate 30 mg [Imdur 30 MG] 30 mg PO DAILY 05/25/15 [History ] Potassium Chloride 10 Meq Tab* [Klor Con 10 MEQ] 20 meq PO BID 05/25/15 [ History] Pravastatin Sodium [Pravachol] 40 mg PO HS 05/25/15 [History] Polyethylene Glycol 3350 17 gm [Miralax Powder 17GM PACKET] 17 gm PO DAILY [History] Albuterol 2.5 mg/3 ml Neb [Proventil 2.5 mg/3 ml Neb] 2.5 mg IH Q4H PRN [History] Antiox.mv No.10/Omeg3s/Lut/Johnny [I-Caps with Lutein-[place] 3 Sfg] 1 each PO BID [History] Carboxymethylcellulose Sodium [Thera Tears] 1 ml OP QID 05/15/16 [History] Indomethacin 25 mg [Indocin 25 MG] 25 mg PO DAILY 05/15/16 [History] Albuterol 2.5 mg/3 ml Neb [Proventil 2.5 mg/3 ml Neb] 2.5 mg IH Q6H [History] Aspirin 325 mg PO DAILY 12/04/17 [History] Meclizine HCl 25 mg [Antivert 25 mg] 25 mg PO TID 12/04/17 [History] Mometasone/Formoterol [Dulera 200 Mcg/5 Mcg Inhaler] 2 puff IH BID 12/04/17 [ History] Nitroglycerin 0.4 mg Tablet [Nitrostat 0.4 MG Tablet] 0.4 mg SL Q5MIN PRN MR X 3 PRN 12/04/17 [History] Hx Tetanus, Diphtheria Vaccination/Date Given: Yes Hx Influenza Vaccination/Date Given: Yes Hx Pneumococcal Vaccination/Date Given: Yes - Review of Systems Constitutional: No Fever, No Chills Eyes: No Symptoms Ears, Nose, & Throat: No Symptoms Respiratory: Dyspnea, No Cough, No Cyanosis, No Dyspnea on Exertion (ABDI), No Stridor, No Wheezing Cardiac: No Chest Pain, No Edema, No Syncope Abdominal/Gastrointestinal: No Abdominal Pain, No Nausea, No Vomiting, No Diarrhea Genitourinary Symptoms: No Dysuria Musculoskeletal: No Back Pain, No Neck Pain Skin: No Rash Neurological: No Dizziness, No Focal Weakness, No Sensory Changes Psychological: No Symptoms Endocrine: No Symptoms All Other Systems: Reviewed and Negative - Past Medical History Pertinent Past Medical History: Yes Neurological History: No Pertinent History ENT History: Cataracts Cardiac History: Congestive Heart Failure, Coronary Artery Disease Respiratory History: Asthma, CHF, COPD, Pneumonia, Sleep Apnea Endocrine Medical History: No Pertinent History Musculoskeletal History: Arthritis, Osteoarthritis GI Medical History: Hernia History: No Pertinent History Psycho-Social History: No Pertinent History Male Reproductive Disorders: No Pertinent History Other Medical History: Gout - Past Surgical History Past Surgical History: Yes Neuro Surgical History: No Pertinent History Cardiac: Angioplasty, CABG, Cardiac Stent Respiratory: No Pertinent History Gastrointestinal: Hemorrhoidectomy, Hernia Repair Genitourinary: No Pertinent History Musculoskeletal: No Pertinent History Male Surgical History: No Pertinent History - Social History Smoking Status: Former smoker How long have you smoked: 35 Exposure to second hand smoke: No Alcohol Use: None Drug Use: none Patient Lives Alone: Yes Significant Family History: heart disease, hypertension - Nursing Vital Signs Nursing Vital Signs: Initial Vital Signs Temperature 99.2 F 03/21/19 22:04 Pulse Rate 72 03/21/19 22:04 Respiratory Rate 16 03/21/19 22:04 Blood Pressure 141/70 03/21/19 22:04 O2 Sat by Pulse Oximetry 94 L 03/21/19 22:04 Pain Scale Pain Intensity 3 - Physical Exam General Appearance: mild distress, alert Eye Exam: PERRL/EOMI, eyes nml inspection Ears, Nose, Throat Exam: normal ENT inspection, TMs normal, pharynx normal, moist mucous membranes Neck Exam: normal inspection, non-tender, supple, full range of motion Respiratory Exam: diminished breath sounds Cardiovascular Exam: regular rate/rhythm, normal heart sounds, normal peripheral pulses, capillary refill <2 sec Gastrointestinal/Abdomen Exam: soft, normal bowel sounds, No tenderness, No mass Back Exam: normal inspection, normal range of motion, No CVA tenderness, No vertebral tenderness Extremity Exam: normal inspection, normal range of motion, pelvis stable Neurologic Exam: alert, oriented x 3, cooperative, normal mood/affect, nml cerebellar function, nml station & gait, sensation nml, No motor deficits Skin Exam: normal color, warm, dry, No rash Lymphatic Exam: No adenopathy SpO2 Interpretation: normal (94%) SpO2: 94 - Course Nursing assessment & vital signs reviewed: Yes EKG Interpreted by Me: RATE (67 bpm), Sinus Rhythm, Left [place] Deviation, Other ( EKG: Sinus rhythm, 67 beats per minute, left axis deviation, no acute ST or T wave changes, compared to December 03, 2017) - Radiology Exams Chest X-ray Interpretation: Interpreted by me (chest x-ray: Changes of COPD, no acute disease process noted) Ordered Tests: Active Orders 24 hr Category Date Time Status Broadband Technician STAT Care 03/21/19 22:36 Active EKG-ER Only STAT Care 03/21/19 22:36 Active IV Insertion STAT Care 03/21/19 22:36 Active CHEST 1 VIEW (PORTABLE) Stat Exams 03/21/19 22:27 Taken Potassium Stat Lab 03/21/19 22:34 Completed Medication Summary Generic Name Dose Route Start Last Admin Trade Name Dmitriq PRN Reason Stop Dose Admin Potassium Chloride 100 mls @ 50 mls/hr 03/21/19 23:00 Potassium Chloride 20 Meq In Water 100ml IV 03/22/19 02:59 Q2H LORENZO Sodium Chloride 1,000 mls @ 50 mls/hr 03/21/19 23:00 Sodium Chloride 0.9% 1000 Ml IV 04/20/19 22:59 .Q20H LORENZO Lab/Rad Data: Laboratory Result Diagrams 03/21/19 22:34 Laboratory Results 03/21/19 Range/Units 22:34 Potassium 2.2 L* (3.5-5.1) mmol/L - Progress Progress: improved Progress Note: 03/21/19 22:55 88-year-old white male with history of cataracts, congestive heart failure hyperlipidemia, asthma, COPD, emphysema, arthritis, posture arthritis, gout Patient apparently has a history of recently having been placed on metolazone in addition to his other diuretic medicines last week. Patient apparently has been complaining of feeling tired and short of breath. He was seen by Dr. Calvert earlier this afternoon and he was noted to have a potassium of 2.2 on his chemistry Patient arrives she is alert oriented x3. He is mildly short of breath. Vitals temperature 99.2 pulse 72 respirations 16 blood pressure 141/70 oxygen saturation 94%. Patient is alert oriented x3. Head is atraumatic normocephalic. Eyes PERRLA EOMI fundi unremarkable. Ears TMs are intact bilaterally. Nose is clear throat is clear neck supple. Lungs are remarkable for diminished breath sounds otherwise clear. Heart regular rate rhythm without murmur. Abdomen soft nontender nondistended positive bowel sounds. Extremities full range of motion pulse equal symmetrical two over four. Neuro patient is alert oriented x3 cranial nerves II through XII are intact DTRs symmetrical two over four. Patient's EKG remarkable for sinus rhythm, 67 beats per minute left axis deviation, intraventricular conduction delay, no acute ST or T wave changes are noted. Patient's labs which are obtained through laboratory sodium 136 potassium 2.4, chloride 84 bicarbonate 38 BUN 68 creatinine 1.1 glucose 121 CBC White blood cell 11.0 hemoglobin 14.4 hematocrit 41.8 platelets 211 Patient with a BNP of 481 Patient with a chest x-ray remarkable for COPD changes no acute disease process noted. Impression hypokalemia. Weakness. Chronic COPD. History of CHF. Plan I discussed the patient's case with Dr. Calvert. He requested the patient be placed on observation we will go ahead and write for normal saline at 50 mL per hour Will also write for K. rider [address] patient on telemetry order duo neb treatments as needed. Oxygen as needed keep saturations greater than 90% with respiratory consult. Will obtain a CBC CMP in the morning. - Departure Departure Disposition: Observation Clinical Impression: SOB (shortness of breath), Weakness, Hypokalemia, History of congestive heart failure Chronic obstructive pulmonary disease (COPD) Qualifiers: COPD type: unspecified COPD Qualified Code(s): J44.9 - Chronic obstructive pulmonary disease, unspecified Condition: Fair Critical Care Time: No Referrals: SAM CALVERT MD [Primary Care Provider] - Instructions: Chronic Obstructive Pulmonary Disease
[2019-03-21] MEDS ORDERED: Sodium Chloride 0.9% 1000 ML 1,000 ML ONE (22:58)
[2019-03-21] MEDS ORDERED: POTASSIUM CHLORIDE 20 mEq IN WATER 100ML 100 ML IV ONE (22:59)
[2019-03-21] MEDS ORDERED: Sodium Chloride 0.9% 1000 ML 1,000 ML IV SCH (23:00)
[2019-03-21] MEDS: POTASSIUM CHLORIDE 20 mEq IN WATER 100ML 100 ML IV SCH (23:05)
[2019-03-22] MEDS ORDERED: DUONEB 0.5-3 MG/3 ml Neb IH PRN (00:03)
[2019-03-22] MEDS ORDERED: POTASSIUM CHLORIDE 20 mEq IN WATER 100ML 100 ML IV ONE (01:53)
[2019-03-22] MEDS: POTASSIUM CHLORIDE 20 mEq IN WATER 100ML 100 ML IV SCH (02:34)
[2019-03-22 07:32] LABS: BASOPHIL % 0.3 % (0.0-0.4); Basophil (Absolute #) 0.02 (0-0.4); Eosinophil % 2.1 % (0.00-5.0); Eosinophil (Absolute #) 0.17 (0-0.5); Granulocyte Absolute (ANC) 4.65 (1.4-6.9); Granulocytes % 58.4 % (36.0-66.0); Hematocrit 36.6 % (42-50); Hemoglobin 12.6 gm/dl (12.5-18.0); Lymphocyte (Absolute #) 2.09 (1.0-4.6); Lymphocytes % 26.2 % (24.0-44.0); Mean Cell Volume 95.3 fl (78-100); Mean Corpuscular Hemoglobin 32.8 pg (26-32); Mean Corpuscular Hgb Concent. 34.4 g/dl (32-36); Mean Platelet Volume 9.6 fl (6-9.5); Platelet Count 160 K/mm3 (150-450); Red Blood Count 3.84 M/mm3 (4.1-5.6); Red Cell Distribution Width 14.3 % (11.5-14.0)
[2019-03-22 07:50] LABS: ALBUMIN 4.1 g/dL (3.5-5.0); ANION GAP 14.3 MEQ/L (5-15); BILIRUBIN,TOTAL 1.1 mg/dL (0.2-1.3); Creatinine 1 1.52 mg/dL (0.66-1.25); Total Protein 7.1 g/dL (6.3-8.2)
[2019-03-22 07:53] LABS: Potassium 2.7 mmol/L (3.5-5.1)
--- NOTE | 2019-03-22 08:49 | XRAY ---
Indication: Short of breath. Comparison: December 03, 2017. Portable chest again demonstrates COPD, calcified granulomas, and CABG surgery. No focal infiltrate, consolidation, or large effusion. Heart is not enlarged. Bony thorax intact again with mild osteopenia and degenerative changes. Impression: Nonacute chest with chronic features.
--- NOTE | 2019-03-22 08:53 | PCM.HP ---
History of Present Illness - Chief Complaint Chief Complaint: SOB, Weakness, Hypokalemia History of Present Illness: is a 88 year old malept of Dr. Martinez with PMHx CHF, hyperlipidemia, asthma/copd, OA, gout, wtih hx CABG and stents who c/o being weak and sob x [address] martinez yesterday and on labs his K+ was 2.4 so he was sent to ER. Apparently he was started on metolaone 10d ago by his senior merchandiser. Pt says yesterday he also was noted by a friend to have some slurred speech yesterday; this has resolved. He has chronic paresthesias of bilat anterior thighs also. This morning he feels "100% better." Repeat potassium was 2.7. - Review of Systems Cardiac: Edema (feet) Abdominal/Gastrointestinal: Abdominal Pain (chronic), Constipation Neurological: Speech Changes Psychological: No Anxiety, No Depression, No Suicidal Ideations All Other Systems: Reviewed and Negative Medications & Allergies Home Medications: Home Medication List Carvedilol 3.125 mg [Coreg 3.125 MG] 3.125 mg PO BID 05/25/15 [History Confirmed 03/22/19] Clopidogrel Bisulfate 75 mg [PLAVIX 75 MG Tablet] 75 mg PO DAILY 05/25/15 [History Confirmed 03/22/19] Isosorbide Mononitrate 30 mg [Imdur 30 MG] 30 mg PO DAILY 05/25/15 [ History Confirmed 03/22/19] Potassium Chloride 10 Meq Tab* [Klor Con 10 MEQ] 20 meq PO BID 05/25/15 [ History Confirmed 03/22/19] Pravastatin Sodium [Pravachol] 40 mg PO HS 05/25/15 [History Confirmed 03/22/19] Polyethylene Glycol 3350 17 gm [Miralax Powder 17GM PACKET] 17 gm PO DAILY [History Confirmed 03/22/19] Allopurinol 300 mg [Zyloprim 300 mg] 300 mg PO DAILY #0 tablet 01/28/16 [ Rx Confirmed 03/22/19] Albuterol 2.5 mg/3 ml Neb [Proventil 2.5 mg/3 ml Neb] 2.5 mg IH Q4H PRN [History Confirmed 03/22/19] Antiox.mv No.10/Omeg3s/Lut/Johnny [I-Caps with Lutein-Hooven 3 Sfg] 1 each PO BID [History Confirmed 03/22/19] Carboxymethylcellulose Sodium [Thera Tears] 1 ml OP QID 05/15/16 [History Confirmed 03/22/19] Aspirin 325 mg PO DAILY 12/04/17 [History Confirmed 03/22/19] Nitroglycerin 0.4 mg Tablet [Nitrostat 0.4 MG Tablet] 0.4 mg SL Q5MIN PRN MR X 3 PRN 12/04/17 [History Confirmed 03/22/19] Fluticasone/Umeclidin/Vilanter [Trelegy Ellipta 100-62.5-25] 1 puff IN DAILY [History Confirmed 03/22/19] Furosemide [Lasix] 40 mg PO DAILY 03/22/19 [History Confirmed 03/22/19] Levothyroxine Sodium 25 Mcg [Synthroid 25 Mcg] 25 mcg PO DAILY 03/22/19 [ History Confirmed 03/22/19] metOLazone [Metolazone] 2.5 mg PO 3XW 03/22/19 [History Confirmed 03/22/19] Allergies/Adverse Reactions: Allergies Allergy/AdvReac Type Severity Reaction Status Date / Time erythromycin base Allergy Severe Tightness Verified 06/09/16 13:34 in Chest lisinopril Allergy Severe Swelling Verified 06/09/16 13:34 of Tongue and Lips losartan potassium Allergy Severe Swelling Verified 06/09/16 13:34 [From Cozaar] of Face Penicillins Allergy Severe Hives Verified 06/09/16 13:34 - Past Medical History Past Medical History: Yes Neurological History: No Pertinent History, Stroke ENT History: Cataracts Cardiac History: Congestive Heart Failure, Coronary Artery Disease, Hypertension , Myocardial Infarction (HI) Respiratory History: Asthma, CHF, COPD, Pneumonia, Sleep Apnea Endocrine Medical History: No Pertinent History Musculoskelatal History: Arthritis, Osteoarthritis GI Medical History: Hernia History: No Pertinent History Pyscho-Social History: No Pertinent History Male Reproductive Disorders: No Pertinent History Comment: Gout - Past Surgical History Past Surgical History: Yes Neuro Surgical History: No Pertinent History Cardiac History: Angioplasty, CABG, Cardiac Stent Respiratory Surgery: No Pertinent History GI Surgical History: Hemorrhoidectomy, Hernia Repair Genitourinary Surgical Hx: No Pertinent History Musculskeletal Surgical Hx: No Pertinent History Male Surgical History: No Pertinent History - Social History Smoking Status: Former smoker How long have you smoked: 35 Exposure to second hand smoke: No Alcohol: None Drug Use: none Significant Family History: heart disease, hypertension - Physical Exam Vital Signs: Vital Signs - 24 hr Temp Pulse Resp BP Pulse Ox 03/22/19 08:00 97.0 F 58 L 18 102/54 97 03/22/19 04:02 98.6 F 71 16 135/68 96 03/22/19 04:00 98.6 F 71 16 135/68 96 03/22/19 01:11 66 18 94 L 03/22/19 01:02 98.1 F 65 19 132/63 94 L 03/22/19 00:03 94 L 03/22/19 00:02 98.1 F 66 18 132/63 94 L 03/21/19 23:04 94 L 03/21/19 22:56 64 18 136/72 93 L 03/21/19 22:04 99.2 F 72 16 141/70 94 L Oxygen-Last 24 hours O2 Percentage 2 Liters = 28% O2 Percentage 2 Liters = 28% O2 Percentage 2 Liters = 28% General Appearance: no apparent distress, alert Neurologic Exam: oriented x 3, cooperative Eye Exam: eyes nml inspection Ears, Nose, Throat Exam: moist mucous membranes Neck Exam: normal inspection, non-tender, No lymphadenopathy Respiratory Exam: normal breath sounds, lungs clear, No crackles/rales, No rhonchi, No wheezing Cardiovascular Exam: regular rate/rhythm, normal heart sounds, No murmur Extremity Exam: normal inspection, No pedal edema, No swelling Skin Exam: normal color, warm, dry, No rash Results - Labs Lab/Micro Results: Lab Results-Last 24 Hours 03/21/19 03/22/19 03/22/19 Range/Units 22:34 07:10 07:15 WBC 8.0 (4.0-10.5) K/mm3 RBC 3.84 L (4.1-5.6) M/mm3 Hgb 12.6 (12.5-18.0) gm/dl Hct 36.6 L (42-50) % MCV 95.3 (78-100) fl MCH 32.8 H (26-32) pg MCHC 34.4 (32-36) g/dl RDW 14.3 H (11.5-14.0) % Plt Count 160 (150-450) K/mm3 MPV 9.6 H (6-9.5) fl Gran % 58.4 (36.0-66.0) % Eos # (Auto) 0.17 (0-0.5) Absolute Lymphs (auto) 2.09 (1.0-4.6) Absolute Monos (auto) 1.04 (0.0-1.3) Lymphocytes % 26.2 (24.0-44.0) % Monocytes % 13.0 H (0.0-12.0) % Eosinophils % 2.1 (0.00-5.0) % Basophils % 0.3 (0.0-0.4) % Absolute Granulocytes 4.65 (1.4-6.9) Basophils # 0.02 (0-0.4) Sodium 136 L (137-145) mmol/L Potassium 2.2 L* 2.7 L* D (3.5-5.1) mmol/L Chloride 87 L (98-107) mmol/L Carbon Dioxide 37 H (22-30) mmol/L Anion Gap 14.3 (5-15) MEQ/L BUN 62 H (9-20) mg/dL Creatinine 1.52 H (0.66-1.25) mg/dL Estimated GFR 46.1 ML/MIN Glucose 122 H (74-106) mg/dL Calcium 9.0 (8.4-10.2) mg/dL Total Bilirubin 1.10 (0.2-1.3) mg/dL AST 20 (17-59) U/L ALT 14 (0-50) U/L Alkaline Phosphatase 72 (38-126) U/L Serum Total Protein 7.1 (6.3-8.2) g/dL Albumin 4.1 (3.5-5.0) g/dL - Radiology Impressions Radiology Exams & Impressions: Radiology Procedures Category Date Time Status CHEST 1 VIEW (PORTABLE) Stat Exams 03/21/19 22:27 Taken - Other Procedures and Tests Respiratory Therapy 03/22/19 07:00 Respiratory Therapy Assessment DAILY Assessment/Plan (1) Hypokalemia Current Visit: Yes Status: Acute Assessment & Plan: repeat K+ 2.7 - will do another K rider. Will have to increase his po potassium. I have continued the metolazone and held the lasix for now. Code(s): E87.6 - HYPOKALEMIA (2) Slurred speech Current Visit: Yes Status: Resolved Assessment & Plan: check CT head without contrast. LIkely due to hypokalemia. Code(s): R47.81 - SLURRED SPEECH (3) Weakness Current Visit: Yes Status: Resolved Code(s): R53.1 - WEAKNESS (4) Chronic obstructive pulmonary disease (COPD) Current Visit: Yes Status: Chronic Qualifiers: COPD type: unspecified COPD Qualified Code(s): J44.9 - Chronic obstructive pulmonary disease, unspecified (5) Chronic diastolic CHF (congestive heart failure), NYHA class 3 Current Visit: No Status: Chronic Code(s): I50.32 - CHRONIC DIASTOLIC ( CONGESTIVE) HEART FAILURE
[2019-03-22] MEDS ORDERED: Nitrostat 0.4 MG Tablet SL PRN (09:04)
[2019-03-22] MEDS ORDERED: PROVENTIL 2.5 MG/3 ML NEB IH PRN (09:04)
[2019-03-22] MEDS: POTASSIUM CHLORIDE 20 mEq IN WATER 100ML 20 MEQ/100 ML BAG IV SCH ×2 (09:48→11:51)
[2019-03-22] MEDS: Imdur 30 MG PO SCH (09:58)
[2019-03-22] MEDS: Artificial Tears 15 ML OP SCH ×4 (09:58→22:25)
[2019-03-22] MEDS: ZYLOPRIM 300 MG PO SCH (09:58)
[2019-03-22] MEDS: Klor Con 10 MEQ PO SCH ×2 (09:58→22:24)
[2019-03-22] MEDS: Ecotrin 325 MG PO SCH (09:58)
[2019-03-22] MEDS: Coreg 3.125 MG PO SCH ×2 (09:58→22:24)
[2019-03-22] MEDS: PLAVIX 75 MG Tablet PO SCH (09:58)
[2019-03-22] MEDS: Miralax Powder 17GM PACKET PO SCH (09:59)
[2019-03-22] MEDS: SYNTHROID 25 MCG PO SCH (09:59)
[2019-03-22] MEDS ORDERED: Zaroxolyn 2.5 MG PO SCH (10:00)
[2019-03-22] MEDS ORDERED: NON-FORMULARY ITEM (Fluticasone/Umeclidin/Vilanter [Trelegy Ellipta 100-62.5-25] 1 PUFF) IN SCH (10:00)
[2019-03-22] MEDS ORDERED: CARBOXYMETHYLCELLULOSE SODIUM OP SCH (10:00)
[2019-03-22] MEDS ORDERED: PATIENT OWN MEDICATION IH SCH (10:00)
--- NOTE | 2019-03-22 11:42 | XRAY ---
Indication: Slurred speech. Dehydration. Multiple contiguous axial images obtained through the head without contrast. Comparison: May 15, 2016. Stable global atrophy and mild periventricular degenerative micro-ischemia within normal limits for patient's age. Again no acute intracranial hemorrhage, abnormal extra-axial fluid collection, or mass effect. Fourth ventricle is midline without hydrocephalus. Bony calvarium intact. Visualized paranasal sinuses and mastoid air cells are clear. Impression: Stable nonacute senile brain. CT DI 70.91
[2019-03-22] MEDS ORDERED: POTASSIUM CHLORIDE 20 mEq IN WATER 100ML 20 MEQ/100 ML BAG IV SCH (17:00)
[2019-03-22] MEDS ORDERED: Magnesium Sulfate 1 GM/2 ML VIAL IV ONE (17:00)
[2019-03-22] MEDS ORDERED: Potassium Chloride 40 MEQ/20 ML VIAL 40 MEQ, Magnesium Sulfate 1 GM/2 ML VIAL*** 1 GM i... IV SCH ×3 (18:00)
[2019-03-22] MEDS ORDERED: PROVENTIL 2.5 MG/3 ML NEB IH SCH (19:00)
[2019-03-22] MEDS: Sodium Chloride 0.9% 1000 ML 1,000 ML IV SCH (19:42)
[2019-03-22] MEDS ORDERED: NON-FORMULARY ITEM (Pravastatin Sodium [Pravachol] 40 MG) PO SCH (22:00)
[2019-03-22] MEDS: ZOCOR 20MG PO SCH (22:24)
[2019-03-23 06:22] LABS: ANION GAP 11.9 MEQ/L (5-15); Calcium 8.9 mg/dL (8.4-10.2); Creatinine 1 1.23 mg/dL (0.66-1.25); MAGNESIUM 2.4 mg/dL (1.6-2.3)
[2019-03-23 06:32] LABS: Potassium 2.6 mmol/L (3.5-5.1)
--- NOTE | 2019-03-23 08:07 | PCM.NOTE ---
Date and Time: 03/23/19805 Subjective Assessment: doing ok, K is still low (2.6) - Review of Systems Constitutional: No Fever, No Chills Eyes: No Symptoms Ears, Nose, & Throat: No Symptoms Respiratory: No Cough, No Short Of Breath Cardiac: No Chest Pain, No Edema, No Syncope Abdominal/Gastrointestinal: No Abdominal Pain, No Nausea, No Vomiting, No Diarrhea Genitourinary Symptoms: No Dysuria Musculoskeletal: No Back Pain, No Neck Pain Skin: No Rash Neurological: No Dizziness, No Focal Weakness, No Sensory Changes Psychological: No Symptoms Endocrine: No Symptoms Hematologic/Lymphatic: No Symptoms Immunological/Allergic: No Symptoms Objective Exam General Appearance: no apparent distress, alert Neurologic Exam: alert, oriented x 3, cooperative, normal mood/affect, nml cerebellar function, sensation nml, No motor deficits Skin Exam: normal color, warm, dry Eye Exam: PERRL, EOMI, eyes nml inspection Ears, Nose, Throat Exam: normal ENT inspection, pharynx normal, moist mucous membranes Neck Exam: normal inspection, non-tender, supple, full range of motion Respiratory Exam: normal breath sounds, lungs clear, No respiratory distress Cardiovascular Exam: regular rate/rhythm, normal heart sounds Gastrointestinal/Abdomen Exam: soft, No tenderness, No mass Extremity Exam: normal inspection, normal range of motion Back Exam: normal inspection, normal range of motion, No CVA tenderness, No vertebral tenderness Male Genitalia Exam: deferred Rectal Exam: deferred OBJECTIVE DATA Vital Signs: Vital Signs - 24 hr Temp Pulse Resp BP Pulse Ox 03/23/19 04:00 97.7 F 59 L 18 106/49 95 03/23/19 00:00 98.0 F 83 18 119/64 94 L 03/22/19 20:25 86 19 95 03/22/19 20:00 98.2 F 86 18 117/60 95 03/22/19 16:00 97.8 F 61 19 111/57 98 03/22/19 12:00 98.0 F 64 18 126/58 93 L 03/22/19 09:17 61 18 97 Oxygen-Last 24 hours O2 Percentage 2 Liters = 28% O2 Percentage 2 Liters = 28% O2 Percentage 2 Liters = 28% O2 Percentage 2 Liters = 28% Pain Assessment - Last Documented Pain Intensity 0 Pain Scale Used 0-10 Pain Scale Intake and Output: Intake & Output 03/20/19 03/21/19 03/22/19 03/23/19 11:59 11:59 11:59 11:59 Intake Total 451 3126 Output Total 200 3275 Balance 251 -149 Weight 94.2 kg Lab Results: Lab Results-Last 24 Hours 03/22/19 03/22/19 03/22/19 Range/Units 16:30 16:30 23:54 Sodium (137-145) mmol/L Potassium 2.6 L* 3.0 L (3.5-5.1) mmol/L Chloride (98-107) mmol/L Carbon Dioxide (22-30) mmol/L Anion Gap (5-15) MEQ/L BUN (9-20) mg/dL Creatinine (0.66-1.25) mg/dL Estimated GFR ML/MIN Glucose (74-106) mg/dL Calcium (8.4-10.2) mg/dL Magnesium 2.3 (1.6-2.3) mg/dL 03/23/19 Range/Units 05:30 Sodium 136 L (137-145) mmol/L Potassium 2.6 L* (3.5-5.1) mmol/L Chloride 94 L (98-107) mmol/L Carbon Dioxide 33 H (22-30) mmol/L Anion Gap 11.9 (5-15) MEQ/L BUN 46 H (9-20) mg/dL Creatinine 1.23 (0.66-1.25) mg/dL Estimated GFR 58.9 ML/MIN Glucose 117 H (74-106) mg/dL Calcium 8.9 (8.4-10.2) mg/dL Magnesium 2.4 H (1.6-2.3) mg/dL Radiology Exams: Radiology Procedures Category Date Time Status CHEST 1 VIEW (PORTABLE) Stat Exams 03/21/19 22:27 Completed HEAD WITHOUT CONTRAST [CT] Urgent Exams 03/22/19 08:48 Completed Assessment/Plan (1) Hypokalemia Current Visit: Yes Status: Acute Assessment & Plan: Chief Complaint Diagnosis SOB, Weakness, Hypokalemia Allergies Allergy/AdvReac Type Severity Reaction Status Date / Time erythromycin base Allergy Severe Tightness Verified 06/09/16 13:34 in Chest lisinopril Allergy Severe Swelling Verified 06/09/16 13:34 of Tongue and Lips losartan potassium Allergy Severe Swelling Verified 06/09/16 13:34 [From Jamie] of Face Penicillins Allergy Severe Hives Verified 06/09/16 13:34 Vital Signs (Last 24 hours) Temp Pulse Resp BP Pulse Ox 03/23/19 04:00 97.7 F 59 L 18 106/49 95 03/23/19 00:00 98.0 F 83 18 119/64 94 L 03/22/19 20:25 86 19 95 03/22/19 20:00 98.2 F 86 18 117/60 95 03/22/19 16:00 97.8 F 61 19 111/57 98 03/22/19 12:00 98.0 F 64 18 126/58 93 L 03/22/19 09:17 61 18 97 Home Medications Medication Instructions Recorded Confirmed Last Taken Type Fluticasone/Umeclidin/Vilanter 1 puff IN DAILY 03/22/19 03/22/19 Unknown History [[place]án Ellipta 100-62.5-25] Furosemide [Lasix] 40 mg PO DAILY 03/22/19 03/22/19 Unknown History Levothyroxine Sodium 25 Mcg 25 mcg PO DAILY 03/22/19 03/22/19 Unknown History [Synthroid 25 Mcg] metOLazone [Metolazone] 2.5 mg PO 3XW 03/22/19 03/22/19 Unknown History Current Medications Generic Name Dose Route Start Last Admin Trade Name Freq PRN Reason Stop Dose Admin Albuterol Sulfate 2.5 mg 03/23/19 08:00 Proventil 2.5 Mg/3 Ml Neb IH 04/21/19 18:59 BIDRT LORENZO Albuterol/Ipratropium 3 ml 03/22/19 00:03 03/22/19 09:15 Duoneb 0.5-3 Mg/3 Ml Neb IH 04/21/19 00:02 3 ml Q4HPRN PRN Administration SHORTNESS OF BREATH/WHEEZING Allopurinol 300 mg 03/22/19 10:00 03/22/19 09:58 Zyloprim 300 Mg PO 04/21/19 09:59 300 mg DAILY LORENZO Administration Artificial Tears 0 ml 03/22/19 10:00 03/22/19 22:25 Artificial Tears 15 Ml OP 04/21/19 09:59 1 ml QID LORENZO Administration Aspirin 325 mg 03/22/19 10:00 03/22/19 09:58 Ecotrin 325 Mg PO 04/21/19 09:59 325 mg DAILY LORENZO Administration Carvedilol 3.125 mg 03/22/19 10:00 03/22/19 22:24 Coreg 3.125 Mg PO 04/21/19 09:59 3.125 mg BID LORENZO Administration Clopidogrel Bisulfate 75 mg 03/22/19 10:00 03/22/19 09:58 Plavix 75 Mg Tablet PO 04/21/19 09:59 75 mg DAILY LORENZO Administration Sodium Chloride 1,000 mls @ 50 mls/hr 03/22/19 00:03 03/22/19 19:42 Sodium Chloride 0.9% 1000 Ml IV 04/21/19 00:02 50 mls/hr .Q20H LORENZO Administration Potassium Chloride 20 meq in 100 mls @ 50 mls/hr 03/23/19 07:30 Potassium Chloride 20 Meq In Water 100ml IV 03/23/19 11:29 Q2H LORENZO Isosorbide Mononitrate 30 mg 03/22/19 10:00 03/22/19 09:58 Imdur 30 Mg PO 04/21/19 09:59 30 mg DAILY LORENZO Administration Levothyroxine Sodium 25 mcg 03/22/19 10:00 03/22/19 09:59 Synthroid 25 Mcg PO 04/21/19 09:59 25 mcg DAILY LORENZO Administration Nitroglycerin 0.4 mg 03/22/19 09:04 Nitrostat 0.4 Mg Tablet SL 04/21/19 09:03 Q5MIN PRN MR X 3 PRN CHEST PAIN Patient Own Med: 0 each 03/22/19 10:00 Trelegy IH 04/21/19 09:59 DAILY LORENZO Polyethylene Glycol 17 gm 03/22/19 10:00 03/22/19 09:59 Miralax Powder 17gm Packet PO 04/21/19 09:59 Not Given DAILY LORENZO Potassium Chloride 20 meq 03/22/19 10:00 03/22/19 22:24 Klor Con 10 Meq PO 04/21/19 09:59 20 meq BID LORENZO Administration Simvastatin 40 mg 03/22/19 22:00 03/22/19 22:24 Zocor 20mg PO 04/21/19 21:59 40 mg HS LORENZO Administration Discontinued Medications Generic Name Dose Route Start Last Admin Trade Name Antony PRN Reason Stop Dose Admin Albuterol Sulfate 2.5 mg 03/22/19 19:00 03/22/19 20:24 Proventil 2.5 Mg/3 Ml Neb IH 04/21/19 18:59 2.5 mg BID LORENZO Administration Potassium Chloride 100 mls @ 50 mls/hr 03/21/19 23:00 03/22/19 02:34 Potassium Chloride 20 Meq In Water 100ml IV 03/22/19 02:59 50 mls/hr Q2H LORENZO Administration Sodium Chloride 1,000 mls @ 50 mls/hr 03/21/19 23:00 03/21/19 23:05 Sodium Chloride 0.9% 1000 Ml IV 04/20/19 22:59 50 mls/hr .Q20H LORENZO Administration Potassium Chloride Confirm 03/21/19 22:59 Potassium Chloride 20 Meq In Water 100ml Administered 03/21/19 23:00 Dose 100 mls @ ud IV .STK-MED ONE Sodium Chloride Confirm 03/21/19 22:58 Sodium Chloride 0.9% 1000 Ml Administered 03/21/19 22:59 Dose 1,000 mls @ ud .ROUTE .STK-MED ONE Potassium Chloride Confirm 03/22/19 01:53 Potassium Chloride 20 Meq In Water 100ml Administered 03/22/19 01:54 Dose 100 mls @ ud IV .STK-MED ONE Potassium Chloride 20 meq in 100 mls @ 50 mls/hr 03/22/19 09:00 03/22/19 11: 51 Potassium Chloride 20 Meq In Water 100ml IV 03/22/19 12:59 50 mls/hr Q2H LORENZO Administration Potassium Chloride 40 meq/ 272 mls @ 68 mls/hr 03/22/19 18:00 03/22/19 17:16 Magnesium Sulfate 1 gm/ Sodium IV 03/22/19 21:59 68 mls/hr Chloride 1800 LORENZO Administration Metolazone 2.5 mg 03/22/19 10:00 03/22/19 09:58 Zaroxolyn 2.5 Mg PO 04/21/19 09:59 2.5 mg [id number] LORENZO Administration Intake & Output (Last 24 hours) 03/20/19 03/21/19 03/22/19 03/23/19 11:59 11:59 11:59 11:59 Intake Total 451 3126 Output Total 200 3275 Balance 251 -149 Weight 94.2 kg Laboratory Results (Last 24 hours) 03/23/19 03/22/19 03/22/19 05:30 23:54 16:30 Sodium 136 L Potassium 2.6 L* 3.0 L 2.6 L* Chloride 94 L Carbon Dioxide 33 H Anion Gap 11.9 BUN 46 H Creatinine 1.23 Estimated GFR 58.9 Glucose 117 H Calcium 8.9 Magnesium 2.4 H 03/22/19 16:30 Sodium Potassium Chloride Carbon Dioxide Anion Gap BUN Creatinine Estimated GFR Glucose Calcium Magnesium 2.3 Orders (Last 24 hours) Category Date Time Status Order K Level 2 hours post-inf 2 HRS POST K-INFUSED Care 03/22/19 08:54 Active Order K Level 2 hours post-inf 2 HRS POST K-INFUSED Care 03/22/19 16:59 Active Order K Level 2 hours post-inf 2 HRS POST K-INFUSED Care 03/23/19 07:29 Active Telemetry q4h Care 03/22/19 08:54 Active HEAD WITHOUT CONTRAST [CT] Urgent Exams 03/22/19 08:48 Completed BMP AM.LAB Lab 03/23/19 05:30 Completed CBC W DIFF AM.LAB Lab 03/22/19 07:15 Completed CMP AM.LAB Lab 03/22/19 07:10 Completed MAG [MAGNESIUM] AM.LAB Lab 03/23/19 05:30 Completed MG [MAGNESIUM] Routine Lab 03/22/19 16:30 Completed Pot [Potassium] Stat Lab 03/22/19 23:54 Completed Pot [Potassium] Urgent Lab 03/22/19 16:30 Completed Albuterol 2.5 mg/3 ml Neb [Proventil 2.5 mg/3 ml Neb Med 03/22/19 19:00 Discontinued ] 2.5 mg IH BID Albuterol 2.5 mg/3 ml Neb [Proventil 2.5 mg/3 ml Neb Med 03/23/19 08:00 Active ] 2.5 mg IH BIDRT Allopurinol 300 mg [Zyloprim 300 mg] Med 03/22/19 10:00 Active 300 mg PO DAILY Aspirin EC 325 mg [Ecotrin 325 MG] Med 03/22/19 10:00 Active 325 mg PO DAILY Carvedilol 3.125 mg [Coreg 3.125 MG] Med 03/22/19 10:00 Active 3.125 mg PO BID Clopidogrel Bisulfate 75 mg [PLAVIX 75 MG Tablet] Med 03/22/19 10:00 Active 75 mg PO DAILY Isosorbide Mononitrate 30 mg [Imdur 30 MG] Med 03/22/19 10:00 Active 30 mg PO DAILY Levothyroxine Sodium 25 Mcg [Synthroid 25 Mcg] Med 03/22/19 10:00 Active 25 mcg PO DAILY Metolazone 2.5 mg [Zaroxolyn 2.5 MG] Med 03/22/19 10:00 Discontinued 2.5 mg PO [id number] Nitroglycerin 0.4 mg Tablet [Nitrostat 0.4 MG Tablet Med 03/22/19 09:04 Active ] 0.4 mg SL Q5MIN PRN MR X 3 PRN Patient Own Med [Patient Own Medication] Med 03/22/19 10:00 Active 0 each IH DAILY Polyethylene Glycol 3350 17 gm [Miralax Powder 17GM Med 03/22/19 10:00 Active PACKET] 17 gm PO DAILY Polyvinyl Alcohol Tears [Artificial Tears 15 ML] Med 03/22/19 10:00 Active 0 ml OP QID Potassium Chloride 10 Meq Tab* [Klor Con 10 MEQ] Med 03/22/19 10:00 Active 20 meq PO BID Potassium Chloride 20Meq/100Ml [POTASSIUM CHLORIDE 20 Med 03/22/19 09:00 Discontinued mEq IN WATER 100ML] 20 meq in 100 ml IV Q2H Potassium Chloride 20Meq/100Ml [POTASSIUM CHLORIDE 20 Med 03/23/19 07:30 Active mEq IN WATER 100ML] 20 meq in 100 ml IV Q2H Potassium Cl 40 Meq/20 ml Vial [Potassium Chloride 40 Med 03/22/19 18:00 Discontinued MEQ/20 ML VIAL] 40 meq Magnesium Sulfate 1 gm/2 ml [Magnesium Sulfate 1 GM/ 2 ML VIAL] 1 gm NaCl 0.9% 250 ml [Sodium Chloride 0.9% 250 ML] 250 ml IV 1800 Simvastatin 20Mg [Zocor 20Mg] Med 03/22/19 22:00 Active 40 mg PO HS BiPap/CPAP ROUTINE RT 03/22/19 19:00 Active Oxygen Nasal Cannula 2 lpm RT 03/22/19 09:16 Active Peak Expiratory Flow Rate ONCE RT 03/22/19 09:26 Active Code(s): E87.6 - HYPOKALEMIA (2) SOB (shortness of breath) Current Visit: Yes Status: Acute Code(s): R06.02 - SHORTNESS OF BREATH (3) History of congestive heart failure Current Visit: Yes Status: Chronic Code(s): Z86.79 - PERSONAL HISTORY OF OTHER DISEASES OF THE CIRCULATORY SYSTEM (4) Chronic obstructive pulmonary disease (COPD) Current Visit: Yes Status: Chronic Qualifiers: COPD type: unspecified COPD Qualified Code(s): J44.9 - Chronic obstructive pulmonary disease, unspecified (5) Weakness Current Visit: Yes Status: Resolved Code(s): R53.1 - WEAKNESS
[2019-03-23] MEDS: POTASSIUM CHLORIDE 20 mEq IN WATER 100ML 20 MEQ/100 ML BAG IV SCH ×4 (08:25→22:52)
[2019-03-23] MEDS: Artificial Tears 15 ML OP SCH ×4 (08:28→21:23)
[2019-03-23] MEDS: Imdur 30 MG PO SCH (08:28)
[2019-03-23] MEDS: SYNTHROID 25 MCG PO SCH (08:28)
[2019-03-23] MEDS: ZYLOPRIM 300 MG PO SCH (08:28)
[2019-03-23] MEDS: Klor Con 10 MEQ PO SCH ×2 (08:28→21:22)
[2019-03-23] MEDS: PLAVIX 75 MG Tablet PO SCH (08:29)
[2019-03-23] MEDS: Miralax Powder 17GM PACKET PO SCH (08:29)
[2019-03-23] MEDS: Coreg 3.125 MG PO SCH ×2 (08:29→21:22)
[2019-03-23] MEDS: Ecotrin 325 MG PO SCH (08:29)
[2019-03-23] MEDS: PROVENTIL 2.5 MG/3 ML NEB IH SCH (19:42)
[2019-03-23] MEDS: Sodium Chloride 0.9% 1000 ML 1,000 ML IV SCH (19:46)
[2019-03-23] MEDS: ZOCOR 20MG PO SCH (21:22)
--- NOTE | 2019-03-24 07:42 | PCM.NOTE ---
Date and Time: 03/24/19740 Subjective Assessment: doing better - Review of Systems Constitutional: No Fever, No Chills Eyes: No Symptoms Ears, Nose, & Throat: No Symptoms Respiratory: No Cough, No Short Of Breath Cardiac: No Chest Pain, No Edema, No Syncope Abdominal/Gastrointestinal: No Abdominal Pain, No Nausea, No Vomiting, No Diarrhea Genitourinary Symptoms: No Dysuria Musculoskeletal: No Back Pain, No Neck Pain Skin: No Rash Neurological: No Dizziness, No Focal Weakness, No Sensory Changes Psychological: No Symptoms Endocrine: No Symptoms Hematologic/Lymphatic: No Symptoms Immunological/Allergic: No Symptoms Objective Exam General Appearance: no apparent distress, alert Neurologic Exam: alert, oriented x 3, cooperative, normal mood/affect, nml cerebellar function, sensation nml, No motor deficits Skin Exam: normal color, warm, dry Eye Exam: PERRL, EOMI, eyes nml inspection Ears, Nose, Throat Exam: normal ENT inspection, pharynx normal, moist mucous membranes Neck Exam: normal inspection, non-tender, supple, full range of motion Respiratory Exam: normal breath sounds, lungs clear, No respiratory distress Cardiovascular Exam: regular rate/rhythm, normal heart sounds Gastrointestinal/Abdomen Exam: soft, No tenderness, No mass Extremity Exam: normal inspection, normal range of motion Back Exam: normal inspection, normal range of motion, No CVA tenderness, No vertebral tenderness Male Genitalia Exam: deferred Rectal Exam: deferred OBJECTIVE DATA Vital Signs: Vital Signs - 24 hr Temp Pulse Resp BP Pulse Ox 03/24/19 05:00 98.0 F 65 26 H 102/52 92 L 03/24/19 04:00 70 22 92 L 03/24/19 00:00 97.9 F 72 22 137/58 87 L 03/23/19 23:44 89 L 03/23/19 20:00 97.7 F 61 24 121/57 94 L 03/23/19 19:43 67 18 95 03/23/19 16:00 97.7 F 65 18 109/55 93 L 03/23/19 12:00 97.3 F 60 20 126/60 96 03/23/19 08:59 73 18 97 03/23/19 08:00 97.6 F 55 L 22 105/53 98 Oxygen-Last 24 hours O2 Percentage 2 Liters = 28% Pain Assessment - Last Documented Pain Intensity 0 Pain Scale Used 0-10 Pain Scale Intake and Output: Intake & Output 03/21/19 03/22/19 03/23/19 03/24/19 11:59 11:59 11:59 11:59 Intake Total 451 3126 2347 Output Total 200 3275 2200 Balance 251 -149 147 Weight 94.2 kg 94.2 kg Lab Results: Lab Results-Last 24 Hours 03/23/19 03/24/19 Range/Units 16:30 03:38 Potassium 3.4 L D 3.3 L (3.5-5.1) mmol/L Radiology Exams: Radiology Procedures Category Date Time Status HEAD WITHOUT CONTRAST [CT] Urgent Exams 03/22/19 08:48 Completed Assessment/Plan (1) Hypokalemia Current Visit: Yes Status: Acute Assessment & Plan: Chief Complaint Diagnosis HYPOKALEMIA, WEAKNESS, SOB Allergies Allergy/AdvReac Type Severity Reaction Status Date / Time erythromycin base Allergy Severe Tightness Verified 06/09/16 13:34 in Chest lisinopril Allergy Severe Swelling Verified 06/09/16 13:34 of Tongue and Lips losartan potassium Allergy Severe Swelling Verified 06/09/16 13:34 [From Cozaar] of Face Penicillins Allergy Severe Hives Verified 06/09/16 13:34 Vital Signs (Last 24 hours) Temp Pulse Resp BP Pulse Ox 03/24/19 05:00 98.0 F 65 26 H 102/52 92 L 03/24/19 04:00 70 22 92 L 03/24/19 00:00 97.9 F 72 22 137/58 87 L 03/23/19 23:44 89 L 03/23/19 20:00 97.7 F 61 24 121/57 94 L 03/23/19 19:43 67 18 95 03/23/19 16:00 97.7 F 65 18 109/55 93 L 03/23/19 12:00 97.3 F 60 20 126/60 96 03/23/19 08:59 73 18 97 03/23/19 08:00 97.6 F 55 L 22 105/53 98 Home Medications Medication Instructions Recorded Confirmed Last Taken Type Fluticasone/Umeclidin/Vilanter 1 puff IN DAILY 03/22/19 03/22/19 Unknown History [Trelegy Ellipta 100-62.5-25] Furosemide [Lasix] 40 mg PO DAILY 03/22/19 03/22/19 Unknown History Levothyroxine Sodium 25 Mcg 25 mcg PO DAILY 03/22/19 03/22/19 Unknown History [Synthroid 25 Mcg] metOLazone [Metolazone] 2.5 mg PO 3XW 03/22/19 03/22/19 Unknown History Current Medications Generic Name Dose Route Start Last Admin Trade Name Freq PRN Reason Stop Dose Admin Albuterol Sulfate 2.5 mg 03/23/19 08:00 03/23/19 19:42 Proventil 2.5 Mg/3 Ml Neb IH 04/21/19 18:59 2.5 mg BIDRT LORENZO Administration Albuterol/Ipratropium 3 ml 03/22/19 00:03 03/22/19 09:15 Duoneb 0.5-3 Mg/3 Ml Neb IH 04/21/19 00:02 3 ml Q4HPRN PRN Administration SHORTNESS OF BREATH/WHEEZING Allopurinol 300 mg 03/22/19 10:00 03/23/19 08:28 Zyloprim 300 Mg PO 04/21/19 09:59 300 mg DAILY LORENZO Administration Artificial Tears 0 ml 03/22/19 10:00 03/23/19 21:23 Artificial Tears 15 Ml OP 04/21/19 09:59 1 ml QID LORENZO Administration Aspirin 325 mg 03/22/19 10:00 03/23/19 08:29 Ecotrin 325 Mg PO 04/21/19 09:59 325 mg DAILY LORENZO Administration Carvedilol 3.125 mg 03/22/19 10:00 03/23/19 21:22 Coreg 3.125 Mg PO 04/21/19 09:59 3.125 mg BID LORENZO Administration Clopidogrel Bisulfate 75 mg 03/22/19 10:00 03/23/19 08:29 Plavix 75 Mg Tablet PO 04/21/19 09:59 75 mg DAILY LORENZO Administration Sodium Chloride 1,000 mls @ 50 mls/hr 03/22/19 00:03 03/23/19 19:46 Sodium Chloride 0.9% 1000 Ml IV 04/21/19 00:02 50 mls/hr .Q20H LORENZO Administration Isosorbide Mononitrate 30 mg 03/22/19 10:00 03/23/19 08:28 Imdur 30 Mg PO 04/21/19 09:59 30 mg DAILY LORENZO Administration Levothyroxine Sodium 25 mcg 03/22/19 10:00 03/23/19 08:28 Synthroid 25 Mcg PO 04/21/19 09:59 25 mcg DAILY LORENZO Administration Nitroglycerin 0.4 mg 03/22/19 09:04 Nitrostat 0.4 Mg Tablet SL 04/21/19 09:03 Q5MIN PRN MR X 3 PRN CHEST PAIN Patient Own Med: 0 each 03/22/19 10:00 Trelegy IH 04/21/19 09:59 DAILY LORENZO Polyethylene Glycol 17 gm 03/22/19 10:00 03/23/19 08:29 Miralax Powder 17gm Packet PO 04/21/19 09:59 Not Given DAILY LORENZO Potassium Chloride 20 meq 03/22/19 10:00 03/23/19 21:22 Klor Con 10 Meq PO 04/21/19 09:59 20 meq BID LORENZO Administration Simvastatin 40 mg 03/22/19 22:00 03/23/19 21:22 Zocor 20mg PO 04/21/19 21:59 40 mg HS LORENZO Administration Discontinued Medications Generic Name Dose Route Start Last Admin Trade Name Freq PRN Reason Stop Dose Admin Albuterol Sulfate 2.5 mg 03/22/19 19:00 03/22/19 20:24 Proventil 2.5 Mg/3 Ml Neb IH 04/21/19 18:59 2.5 mg BID LORENZO Administration Potassium Chloride 100 mls @ 50 mls/hr 03/21/19 23:00 03/22/19 02:34 Potassium Chloride 20 Meq In Water 100ml IV 03/22/19 02:59 50 mls/hr Q2H LORENZO Administration Sodium Chloride 1,000 mls @ 50 mls/hr 03/21/19 23:00 03/21/19 23:05 Sodium Chloride 0.9% 1000 Ml IV 04/20/19 22:59 50 mls/hr .Q20H LORENZO Administration Potassium Chloride Confirm 03/21/19 22:59 Potassium Chloride 20 Meq In Water 100ml Administered 03/21/19 23:00 Dose 100 mls @ ud IV .STK-MED ONE Sodium Chloride Confirm 03/21/19 22:58 Sodium Chloride 0.9% 1000 Ml Administered 03/21/19 22:59 Dose 1,000 mls @ ud .ROUTE .STK-MED ONE Potassium Chloride Confirm 03/22/19 01:53 Potassium Chloride 20 Meq In Water 100ml Administered 03/22/19 01:54 Dose 100 mls @ ud IV .STK-MED ONE Potassium Chloride 20 meq in 100 mls @ 50 mls/hr 03/22/19 09:00 03/22/19 11: 51 Potassium Chloride 20 Meq In Water 100ml IV 03/22/19 12:59 50 mls/hr Q2H LORENZO Administration Potassium Chloride 40 meq/ 272 mls @ 68 mls/hr 03/22/19 18:00 03/22/19 17:16 Magnesium Sulfate 1 gm/ Sodium IV 03/22/19 21:59 68 mls/hr Chloride 1800 LORENZO Administration Potassium Chloride 20 meq in 100 mls @ 50 mls/hr 03/23/19 07:30 03/23/19 11: 01 Potassium Chloride 20 Meq In Water 100ml IV 03/23/19 11:29 50 mls/hr Q2H LORENZO Administration Potassium Chloride 20 meq in 100 mls @ 50 mls/hr 03/23/19 18:15 03/23/19 22: 52 Potassium Chloride 20 Meq In Water 100ml IV 03/23/19 22:14 50 mls/hr Q2H LORENZO Administration Metolazone 2.5 mg 03/22/19 10:00 03/22/19 09:58 Zaroxolyn 2.5 Mg PO 04/21/19 09:59 2.5 mg MoWeFr@1000 LORENZO Administration Intake & Output (Last 24 hours) 03/21/19 03/22/19 03/23/19 03/24/19 11:59 11:59 11:59 11:59 Intake Total 962 3126 2347 Output Total 200 3275 2200 Balance 251 -149 147 Weight 94.2 kg 94.2 kg Laboratory Results (Last 24 hours) 03/24/19 03/23/19 03:38 16:30 Potassium 3.3 L 3.4 L D Orders (Last 24 hours) Category Date Time Status Order K Level 2 hours post-inf 2 HRS POST K-INFUSED Care 03/23/19 07:29 Completed Order K Level 2 hours post-inf 2 HRS POST K-INFUSED Care 03/23/19 18:12 Active Pot [Potassium] Stat Lab 03/24/19 03:38 Completed Pot [Potassium] Urgent Lab 03/23/19 16:30 Completed Albuterol 2.5 mg/3 ml Neb [Proventil 2.5 mg/3 ml Neb Med 03/23/19 08:00 Active ] 2.5 mg IH BIDRT Potassium Chloride 20Meq/100Ml [POTASSIUM CHLORIDE 20 Med 03/23/19 07:30 Discontinued mEq IN WATER 100ML] 20 meq in 100 ml IV Q2H Potassium Chloride 20Meq/100Ml [POTASSIUM CHLORIDE 20 Med 03/23/19 18:15 Discontinued mEq IN WATER 100ML] 20 meq in 100 ml IV Q2H Pulse Oximetry .overnight RT 03/23/19 11:18 Completed Patient Care Notes (Last 24 hours) 03/24/19 00:22 Nursing Note by Olivia Tate K+ riders ran @ 30ml/hr d/t pt c/o of burning @ IV site. Initialized on 03/24/19 00:22 - END OF NOTE Code(s): E87.6 - HYPOKALEMIA (2) SOB (shortness of breath) Current Visit: Yes Status: Acute Code(s): R06.02 - SHORTNESS OF BREATH (3) History of congestive heart failure Current Visit: Yes Status: Chronic Code(s): Z86.79 - PERSONAL HISTORY OF OTHER DISEASES OF THE CIRCULATORY SYSTEM (4) Chronic obstructive pulmonary disease (COPD) Current Visit: Yes Status: Chronic Qualifiers: COPD type: unspecified COPD Qualified Code(s): J44.9 - Chronic obstructive pulmonary disease, unspecified (5) Weakness Current Visit: Yes Status: Resolved Code(s): R53.1 - WEAKNESS
[2019-03-24] MEDS ORDERED: POTASSIUM CHLORIDE 20 mEq IN WATER 100ML 200 ML IV ONE (08:48)
[2019-03-24] MEDS: POTASSIUM CHLORIDE 20 mEq IN WATER 100ML 20 MEQ/100 ML BAG IV SCH ×2 (08:57→12:30)
[2019-03-24] MEDS: SYNTHROID 25 MCG PO SCH (08:59)
[2019-03-24] MEDS: Coreg 3.125 MG PO SCH (08:59)
[2019-03-24] MEDS: ZYLOPRIM 300 MG PO SCH (08:59)
[2019-03-24] MEDS: Klor Con 10 MEQ PO SCH (08:59)
[2019-03-24] MEDS: Artificial Tears 15 ML OP SCH ×3 (08:59→16:27)
[2019-03-24] MEDS: Ecotrin 325 MG PO SCH (09:00)
[2019-03-24] MEDS: PLAVIX 75 MG Tablet PO SCH (09:00)
[2019-03-24] MEDS: Miralax Powder 17GM PACKET PO SCH (09:00)
[2019-03-24] MEDS: Imdur 30 MG PO SCH (09:00)
[2019-03-24] MEDS: PROVENTIL 2.5 MG/3 ML NEB IH SCH (09:14)
[2019-03-24 15:29] VITALS: BP 118/58; PULSE 68; O2SAT 95
--- NOTE | 2019-03-24 18:31 | PCM.DS ---
Discharge Summary Date of Admission: 03/23/19 05:30 Admitting Physician: SAM CALVERT Primary Care Provider: SAM CALVERT Allergies Allergies erythromycin base Allergy (Severe, Verified 06/09/16 13:34) Tightness in Chest lisinopril Allergy (Severe, Verified 06/09/16 13:34) Swelling of Tongue and Lips losartan potassium [From Cozaar] Allergy (Severe, Verified 06/09/16 13:34) Swelling of Face Penicillins Allergy (Severe, Verified 06/09/16 13:34) [facility] Summary - Hospital Course Hospital Course: Last Vital Signs Temp 97.9 F 03/24/19 15:28 Pulse 68 03/24/19 15:28 Resp 20 03/24/19 15:28 BP 118/58 03/24/19 15:28 Pulse Ox 95 03/24/19 15:28 Allergies erythromycin base Allergy (Severe, Verified 06/09/16 13:34) Tightness in Chest lisinopril Allergy (Severe, Verified 06/09/16 13:34) Swelling of Tongue and Lips losartan potassium [From Cozaar] Allergy (Severe, Verified 06/09/16 13:34) Swelling of Face Penicillins Allergy (Severe, Verified 06/09/16 13:34) [facility] Active Medications Albuterol Sulfate (Proventil 2.5 Mg/3 Ml Neb) 2.5 mg IH BIDRT [facility] Stop: 04/21/19 18:59 Last Admin: 03/24/19 09:14 Dose: 2.5 mg Albuterol/Ipratropium (Duoneb 0.5-3 Mg/3 Ml Neb) 3 ml IH Q4HPRN PRN PRN Reason: SHORTNESS OF BREATH/WHEEZING Stop: 04/21/19 00:02 Last Admin: 03/22/19 09:15 Dose: 3 ml Allopurinol (Zyloprim 300 Mg) 300 mg PO DAILY [facility] Stop: 04/21/19 09:59 Last Admin: 03/24/19 08:59 Dose: 300 mg Artificial Tears (Artificial Tears 15 Ml) 0 ml OP QID [facility] Stop: 04/21/19 09:59 Last Admin: 03/24/19 16:27 Dose: 15 ml Aspirin (Ecotrin 325 Mg) 325 mg PO DAILY [facility] Stop: 04/21/19 09:59 Last Admin: 03/24/19 09:00 Dose: 325 mg Carvedilol (Coreg 3.125 Mg) 3.125 mg PO BID LORENZO Stop: 04/21/19 09:59 Last Admin: 03/24/19 08:59 Dose: 3.125 mg Clopidogrel Bisulfate (Plavix 75 Mg Tablet) 75 mg PO DAILY LORENZO Stop: 04/21/19 09:59 Last Admin: 03/24/19 09:00 Dose: 75 mg Sodium Chloride (Sodium Chloride 0.9% 1000 Ml) 1,000 mls @ 50 mls/hr IV .Q20H LORENZO Stop: 04/21/19 00:02 Last Admin: 03/23/19 19:46 Dose: 50 mls/hr Isosorbide Mononitrate (Imdur 30 Mg) 30 mg PO DAILY LORENZO Stop: 04/21/19 09:59 Last Admin: 03/24/19 09:00 Dose: 30 mg Levothyroxine Sodium (Synthroid 25 Mcg) 25 mcg PO DAILY LORENZO Stop: 04/21/19 09:59 Last Admin: 03/24/19 08:59 Dose: 25 mcg Nitroglycerin (Nitrostat 0.4 Mg Tablet) 0.4 mg SL Q5MIN PRN MR X 3 PRN PRN Reason: CHEST PAIN Stop: 04/21/19 09:03 Patient Own Med: (Trelegy) 0 each IH DAILY LORENZO Stop: 04/21/19 09:59 Polyethylene Glycol (Miralax Powder 17gm Packet) 17 gm PO DAILY LORENZO Stop: 04/21/19 09:59 Last Admin: 03/24/19 09:00 Dose: Not Given Potassium Chloride (Klor Con 10 Meq) 20 meq PO BID LORENZO Stop: 04/21/19 09:59 Last Admin: 03/24/19 08:59 Dose: 20 meq Simvastatin (Zocor 20mg) 40 mg PO HS LORENZO Stop: 04/21/19 21:59 Last Admin: 03/23/19 21:22 Dose: 40 mg Intake & Output 03/24/19 03/25/19 11:59 11:59 Intake Total 2734 1271 Output Total 2200 550 Balance 147 721 Weight 94.7 kg Orders 03/23/19 18:12 Order K Level 2 hours post-inf 2 HRS POST K-INFUSED 03/24/19 07:52 Order K Level 2 hours post-inf 2 HRS POST K-INFUSED Telemetry q4h Lab Tests 03/24/19 03/24/19 03:38 17:49 Potassium 3.3 L 3.4 L - Vitals & Intake/Output Vital Signs: Vital Signs Temperature 97.9 F 03/24/19 15:28 Pulse Rate 68 03/24/19 15:28 Respiratory Rate 20 03/24/19 15:28 Blood Pressure 118/58 03/24/19 15:28 O2 Sat by Pulse Oximetry 95 03/24/19 15:28 Oxygen-Last Documented O2 Percentage 2 Liters = 28% Intake & Output: Intake & Output 03/22/19 03/23/19 03/24/19 03/25/19 11:59 11:59 11:59 11:59 Intake Total 451 3126 2347 1271 Output Total 200 3275 2200 550 Balance 251 -149 147 721 Weight 94.2 kg 94.2 kg 94.7 kg - Lab Result Diagrams: 03/22/19 07:15 03/24/19 17:49 Lab Results-Last 24 Hrs: Lab Results-Last 24 Hours 03/24/19 03/24/19 Range/Units 03:38 17:49 Potassium 3.3 L 3.4 L (3.5-5.1) mmol/L - Procedures and Test Procedures and Tests throughout Hospitalization: Therapy Orders & Screens 03/22/19 00:03 Respiratory Therapy Consult ROUTINE Comment: Reason For Exam: 03/22/19 07:00 Respiratory Therapy Assessment DAILY Comment: 03/22/19 09:16 Oxygen Nasal Cannula 2 lpm Comment: Diagnosis: SOB, Weakness, Hypokalemia 03/22/19 09:26 Peak Expiratory Flow Rate ONCE Comment: Reason For Exam: Diagnosis: SOB, Weakness, Hypokalemia Discharge Exam General Appearance: no apparent distress, alert Neurologic Exam: alert, oriented x 3, cooperative, normal mood/affect, nml cerebellar function, sensation nml, No motor deficits Eye Exam: PERRL, EOMI, eyes nml inspection Ears, Nose, Throat Exam: normal ENT inspection, pharynx normal, moist mucous membranes Neck Exam: normal inspection, non-tender, supple, full range of motion Respiratory Exam: normal breath sounds, lungs clear, No respiratory distress Cardiovascular Exam: regular rate/rhythm, normal heart sounds Gastrointestinal/Abdomen Exam: soft, No tenderness, No mass Male Genitalia Exam: deferred Rectal Exam: deferred Back Exam: normal inspection, normal range of motion, No CVA tenderness, No vertebral tenderness Extremity Exam: normal inspection, normal range of motion Skin Exam: normal color, warm, dry Final Diagnosis/Problem List - Final Discharge Diagnosis/Problem (1) Hypokalemia Current Visit: Yes Status: Resolved Code(s): E87.6 - HYPOKALEMIA (2) SOB (shortness of breath) Current Visit: Yes Status: Resolved Code(s): R06.02 - SHORTNESS OF BREATH (3) History of congestive heart failure Current Visit: Yes Status: Chronic Code(s): Z86.79 - PERSONAL HISTORY OF OTHER DISEASES OF THE CIRCULATORY SYSTEM (4) Chronic obstructive pulmonary disease (COPD) Current Visit: Yes Status: Chronic (5) Weakness Current Visit: Yes Status: Resolved Code(s): R53.1 - WEAKNESS - Discharge Discharge Date: 03/24/19 Disposition: Home, Self-Care Condition: Stable Prescriptions: Continue Isosorbide Mononitrate 30 mg [Imdur 30 MG] 30 mg PO DAILY Clopidogrel Bisulfate 75 mg [PLAVIX 75 MG Tablet] 75 mg PO DAILY Carvedilol 3.125 mg [Coreg 3.125 MG] 3.125 mg PO BID Pravastatin Sodium [Pravachol] 40 mg PO HS Potassium Chloride 10 Meq Tab* [Klor Con 10 MEQ] 20 meq PO BID Polyethylene Glycol 3350 17 gm [Miralax Powder 17GM PACKET] 17 gm PO DAILY Allopurinol 300 mg [Zyloprim 300 mg] 300 mg PO DAILY #0 tablet Carboxymethylcellulose Sodium [Thera Tears] 1 ml OP QID Albuterol 2.5 mg/3 ml Neb [Proventil 2.5 mg/3 ml Neb] 2.5 mg IH Q4H PRN PRN Reason: Shortness Of Breath Antiox.mv No.10/Omeg3s/Lut/Johnny [I-Caps with Lutein-[place] 3 Sfg] 1 each PO BID Aspirin 325 mg PO DAILY Nitroglycerin 0.4 mg Tablet [Nitrostat 0.4 MG Tablet] 0.4 mg SL Q5MIN PRN MR X 3 PRN PRN Reason: Chest Pain Levothyroxine Sodium 25 Mcg [Synthroid 25 Mcg] 25 mcg PO DAILY Fluticasone/Umeclidin/Vilanter [Trelegy Ellipta 100-62.5-25] 1 puff IN DAILY Discontinued Furosemide [Lasix] 40 mg PO DAILY metOLazone [Metolazone] 2.5 mg PO 3XW Follow up with: SAM CALVERT MD [Primary Care Provider] - 1 Week
== END 2019-03-24 20:00 | disposition home or self-care (01) | DRG 641 ==
LOC: ED 21:48 → MED SURG 03-22 00:01 → OBSVTOIN 03-23 05:30 → MED SURG 03-24 09:34
PROVIDERS: ADMIT General Practice; ATTEND General Practice
DX: E87.6 Hypokalemia (principal); I50.32 Chronic diastolic (congestive) heart failure; R06.02 Shortness of breath; J44.9 Chronic obstructive pulmonary disease, unspecified; I10 Essential (primary) hypertension; R47.81 Slurred speech; I25.10 Atherosclerotic heart disease of native coronary artery without angina pectoris; G47.30 Sleep apnea, unspecified; Z79.01 Long term (current) use of anticoagulants; Z79.899 Other long term (current) drug therapy; Z95.1 Presence of aortocoronary bypass graft; I25.2 Old myocardial infarction
CPT/HCPCS: 36000; 36415; 70450; 71045; 80048; 80053; 83735; 84132; 85025; 93005; 93041; 93268; 94150; 94640; 94660; 94762; 96360; 96374; 99285; G0378; J3475; J3480; J7609; A9270-GY